=== PATIENT | female | born 1950 | race Caucasian/White ===

== ENCOUNTER → 2016-12-10 | Outpatient (CLI) | payer MEDICARE ==
--- NOTE | 2016-12-11 09:50 | MM ---
Reason for exam: screening (asymptomatic). Last mammogram was performed 1 year ago. History: Patient is postmenopausal and is nulliparous. Family history of breast cancer in maternal cousin. Physical Findings: A clinical breast exam by your physician is recommended on an annual basis and results should be correlated with mammographic findings. MG Screening Mammo w CAD Bilateral CC and MLO view(s) were taken. Prior study comparison: December 07, 2015, bilateral MG screening mammo w CAD. November 10, 2014, bilateral MG screening mammo w CAD. There are scattered fibroglandular densities. No significant changes when compared with prior studies. ASSESSMENT: Benign, BI-RAD 2 RECOMMENDATION: Routine screening mammogram of both breasts in 1 year.
== END | disposition home or self-care (01) ==
LOC: RADMAMWWP 09:49
PROVIDERS: ATTEND General Practice
DX: Z12.31 Encounter for screening mammogram for malignant neoplasm of breast (principal)

== ENCOUNTER → 2017-12-22 | Outpatient (CLI) | payer MEDICARE ==
--- NOTE | 2017-12-23 11:37 | MM ---
Reason for exam: screening (asymptomatic). Last mammogram was performed 1 year ago. History: Patient is postmenopausal and is nulliparous. Family history of breast cancer in maternal cousin. Physical Findings: A clinical breast exam by your physician is recommended on an annual basis and results should be correlated with mammographic findings. MG Screening Mammo w CAD Bilateral CC and MLO view(s) were taken. Prior study comparison: December 10, 2016, bilateral MG screening mammo w CAD. December 07, 2015, bilateral MG screening mammo w CAD. There are scattered fibroglandular densities. No significant changes when compared with prior studies. ASSESSMENT: Benign, BI-RAD 2 RECOMMENDATION: Routine screening mammogram of both breasts in 1 year.
== END | disposition home or self-care (01) ==
LOC: RADMAMWWP 10:02
PROVIDERS: ATTEND General Practice
DX: Z12.31 Encounter for screening mammogram for malignant neoplasm of breast (principal)
CPT/HCPCS: 77067

== ENCOUNTER → 2018-12-25 | Outpatient (CLI) | payer MEDICARE ==
--- NOTE | 2018-12-28 09:12 | MM ---
Reason for exam: screening (asymptomatic). Last mammogram was performed 1 year ago. History: Patient is postmenopausal and is nulliparous. Family history of breast cancer in maternal cousin. Physical Findings: A clinical breast exam by your physician is recommended on an annual basis and results should be correlated with mammographic findings. MG Screening Mammo w CAD Bilateral CC and MLO view(s) were taken. Prior study comparison: December 22, 2017, bilateral MG screening mammo w CAD. December 10, 2016, bilateral MG screening mammo w CAD. The breast tissue is heterogeneously dense. This may lower the sensitivity of mammography. There are benign appearing round linear calcifications bilaterally. There is no discrete abnormality. ASSESSMENT: Benign, BI-RAD 2 RECOMMENDATION: Routine screening mammogram of both breasts in 1 year.
== END | disposition home or self-care (01) ==
LOC: RADMAMWWP 09:56
PROVIDERS: ATTEND General Practice
DX: Z12.31 Encounter for screening mammogram for malignant neoplasm of breast (principal)
CPT/HCPCS: 77067

== ENCOUNTER → 2020-01-06 | Outpatient (CLI) | payer MEDICARE ==
--- NOTE | 2020-01-06 10:45 | MM ---
Reason for exam: screening (asymptomatic). Last mammogram was performed 1 year ago. History: Patient is postmenopausal and is nulliparous. Family history of breast cancer in paternal cousin. Physical Findings: A clinical breast exam by your physician is recommended on an annual basis and results should be correlated with mammographic findings. MG Screening Mammo w CAD Bilateral CC, MLO, and XCCL view(s) were taken. Prior study comparison: December 25, 2018, bilateral MG screening mammo w CAD. December 22, 2017, bilateral MG screening mammo w CAD. The breast tissue is heterogeneously dense. This may lower the sensitivity of mammography. There are benign appearing round dystrophic calcifications bilaterally. There is no discrete abnormality. ASSESSMENT: Benign, BI-RAD 2 RECOMMENDATION: Routine screening mammogram of both breasts in 1 year.
== END | disposition home or self-care (01) ==
LOC: RADMAMWWP 09:56
PROVIDERS: ATTEND Family Medicine
DX: Z12.31 Encounter for screening mammogram for malignant neoplasm of breast (principal)
CPT/HCPCS: 77067

== ENCOUNTER 2020-02-02 14:05 | Emergency (ER) | payer MEDICARE ==
[2020-02-02 14:14] VITALS: TEMP 97.5
[2020-02-02] MEDS ORDERED: DIPH,PERTUS(ACELL)TETVAC-LF 0.5 ML VIAL IM ONE (14:30)
[2020-02-02 14:58] VITALS: RESP 18
--- NOTE | 2020-02-02 14:59 | CT ---
EXAMINATION TYPE: CT brain uyen rico DATE OF EXAM: 02/02/2020 COMPARISON: HISTORY: Fall/head injury CT DLP: 948.[address] of the brain was performed. The ventricles, basal cisterns and sulci overlying the cerebral convexities demonstrate mild enlargem ent. There is no evidence for intracranial hemorrhage or sulcal effacement. There is decreased attenuatio n about the periventricular white matter and deep white matter of both cerebral hemispheres, compatib le with chronic small vessel ischemia. Small focal areas of remote insult. No mass effects are seen. If symptoms persist consider MRI. Osseous calvarium is intact. Facial fractures noted. Please see CT of the facial bones. IMPRESSION: 1. Age related atrophic and chronic small vessel ischemic change without acute intracranial process seen at this time. CT Cervical Spine: Unenhanced CT of the cervical spine was performed with bone and soft tissue window settings submitted . Coronal and sagittal reconstruction is obtained. There is normal alignment and prevertebral soft tissues. No evidence for acute cervical fracture . Scattered degenerative disc disease and spondylosis. Biapical scarring. IMPRESSION: 1. No evidence for acute fracture or subluxation of the cervical spine.
--- NOTE | 2020-02-02 15:06 | CT ---
EXAMINATION TYPE: CT facial bones wo con DATE OF EXAM: 02/02/2020 COMPARISON: None HISTORY: Fall/head injury CT DLP: 948.[address] of the facial bones was performed in the axial and coronal planes. Bone and soft tissu e window settings are submitted. Fractures are noted to involve the anterior wall, medial wall, lateral brito of the maxillary sinus o n the left. There is also fracture at the floor of the orbit without blowout component. Fractures als o seen involving the posterior wall extending into the pterygoid process. The left maxillary sinus is filled with blood byproducts. Nondisplaced nasal bone fracture also suggested. Tissue swelling noted . The globes are intact. IMPRESSION: Facial fractures as discussed. 1. No evidence for depressed or displaced facial bone fracture.
[2020-02-02] MEDS ORDERED: LIDOCAINE 1% INJ 10MG/ML (20 ML MDV) SQ ONE (16:05)
[2020-02-02] MEDS ORDERED: AMOXIC-POT CLAV 875MG STARTER PACK 2 TAB BTL PO STA (16:57)
--- NOTE | 2020-02-02 16:57 | ED ---
Fall HPI - General Chief Complaint: Fall Stated Complaint: Jaw injury, patient fell Time Seen by Provider: 02/02/20 14:18 Source: patient Mode of arrival: wheelchair - History of Present Illness Initial Comments: 69-year-old female patient presents to the emergency department today for evaluation of facial injury. Patient was up approximately 4-5 feet on a ladder cleaning out the top of the refrigerator when the ladder collapsed and she fell hitting her face on the floor. She denies any loss of consciousness. She is having significant left-sided facial pain, jaw pain, and states that she believes she broke a tooth. Patient is also having bleeding from her nose. She denies any neck or back pain. Denies any extremity injury. She denies taking blood thinning medications. She has not taken anything for pain. Patient denies any headache, chest pain, shortness of breath, dizziness, weakness, abdominal pain, nausea, vomiting, or difficulties with bowel movements or urination. - Related Data Previous Rx's Medication Instructions Recorded Amoxic-Pot Clav 875-125Mg 1 tab PO Q12HR #20 tablet 02/02/20 [Augmentin 875-125] Allergies Allergy/AdvReac Type Severity Reaction Status Date / Time No Known Allergies Allergy Verified 02/02/20 16:56 Review of Systems ROS Statement: Those systems with pertinent positive or pertinent negative responses have been documented in the HPI. ROS Other: All systems not noted in ROS Statement are negative. Past Medical History Past Medical History: Hypertension History of Any Multi-Drug Resistant Organisms: None Reported Past Surgical History: No Surgical Hx Reported Past Psychological History: No Psychological Hx Reported Smoking Status: Former smoker Past Alcohol Use History: None Reported Past Drug Use History: None Reported General Exam Limitations: no limitations General appearance: alert, in no apparent distress, other (This is a well- developed, well-nourished elderly female patient in no acute distress. Vital signs upon presentation are temperature 97.5F, pulse 108, respirations 16, blood pressure 167/91, pulse ox 97% on room air.) Eye exam: Present: normal appearance, PERRL, EOMI, other (Extraocular movements are intact.). Absent: scleral icterus, conjunctival injection, nystagmus, periorbital swelling, periorbital tenderness ENT exam: Present: mucous membranes moist, other (Patient has left-sided facial swelling, dependent ecchymosis, there is a 2 cm laceration noted to the chin which is through and through. There is a broken tooth to the lower front. There is gingival bleeding noted. There is dried blood noted to the bilateral nares. No evidence for septal hematoma.). Absent: normal exam, normal oropharynx Neck exam: Present: normal inspection, full ROM, other (Nontender, no step-off, no deformity to firm midline palpation of the posterior cervical spine. Full range of motion without pain or limitation.). Absent: tenderness, meningismus, lymphadenopathy Respiratory exam: Present: normal lung sounds bilaterally. Absent: respiratory distress, wheezes, rales, rhonchi, stridor Cardiovascular Exam: Present: regular rate, normal rhythm, normal heart sounds. Absent: systolic murmur, diastolic murmur, rubs, gallop, clicks GI/Abdominal exam: Present: soft, normal bowel sounds. Absent: distended, tenderness, guarding, rebound, rigid Back exam: Present: normal inspection, other (Nontender, no step-off, no deformity to firm midline palpation of the thoracic and lumbar vertebrae. Full range of motion without pain or limitation.). Absent: vertebral tenderness Neurological exam: Present: alert, oriented X3, CN II-XII intact Psychiatric exam: Present: normal affect, normal mood Skin exam: Present: warm, dry, intact, normal color. Absent: rash Course Vital Signs 02/02/20 02/02/20 02/02/20 14:07 14:57 15:43 Temperature 97.5 F L Pulse Rate 108 H 90 90 Respiratory 16 18 18 Rate Blood Pressure 167/91 153/94 O2 Sat by Pulse 97 97 98 Oximetry 02/02/20 02/02/20 16:25 17:23 Temperature Pulse Rate 98 88 Respiratory 18 18 Rate Blood Pressure 143/97 O2 Sat by Pulse 97 98 Oximetry Procedures - Laceration Laceration #1 Consent Obtained: verbal consent Indication: laceration Site: face Size (cm): 2 Description: linear Depth: [id number] Anesthetic Used: lidocaine 1% Anesthesia Technique: local infiltration Amount (mls): 3 Pre-repair: irrigated extensively Type of Sutures: nylon Size of Sutures: 6-0 Number of Sutures: 4 Technique: simple, interrupted Patient Tolerated Procedure: well, no complications Medical Decision Making - Medical Decision Making 69-year-old female patient presents to the emergency department today for evaluation of facial injury after a fall from a ladder. Physical examination did reveal left-sided facial swelling and dependent ecchymosis. There is a laceration noted to the chin just below the lip. CT facial bones, brain, C- spine were obtained. Brain and C-spine were negative but the facial bones showed left maxillary sinus fracture, inferior orbital wall fracture and a pterygoid fracture. Patient also had broken teeth. I did discuss the case with Dr. Clinton who recommends antibiotics, soft diet, sleeping upright, and instruction to no blow her nose. He also recommends outpatient ophthalmology follow-up. She'll be discharged with Augmentin. She refuses pain medication pr escription. She is instructed to follow-up with dentistry as well for her teeth. Return parameters were discussed in detail. She verbalizes understanding and agrees with this plan. - Radiology Data Radiology results: report reviewed, image reviewed CT of the brain and C-spine without contrast was obtained. Report was reviewed in its entirety. Impression by Dr. Blanco shows age-related atrophic and chronic small vessel ischemic change without acute intracranial process seen at this time. No evidence for acute fracture or subluxation of the cervical spine. CT facial bones without contrast was obtained. Report was reviewed in its entirety. Impression by Dr. Blanco fractures involving the anterior wall, medial wall, and lateral brito of the maxillary sinus on the left. There is also fracture of the floor of the orbit without blowout component. Fractures also seen involving the posterior wall extending to the pterygoid process. The left maxilla sinuses filled with blood bright products. Nondisplaced nasal bone fracture is also suggested. Swelling noted. The globes are intact. Disposition Clinical Impression: Maxillary sinus fracture, Fracture of inferior orbital wall, Pterygoid plate fracture, Nasal bone fracture Disposition: HOME SELF-CARE Condition: Good Instructions (If sedation given, give patient instructions): Nasal Fracture (ED), Facial Fracture (ED), Facial Laceration (ED) Additional Instructions: Do not blow your nose. Sleep sitting up. Eat only soft foods. Return immediately for any vision changes. Follow-up with the ear, nose, throat specialist Dr. Clinton within the next week for further evaluation of your maxillary and orbital fractures. Follow-up with the industrial controls technician Dr. Tse for further evaluation as soon as possible for orbital fracture. Follow up with the oral surgeon for recheck as soon as possible for broken tooth. Complete antibiotic prescription and full. Return to the emergency department immediately for any new, worsening, or c oncerning symptoms. Prescriptions: Amoxic-Pot Clav 875-125Mg [Augmentin 875-125] 1 tab PO Q12HR #20 tablet Is patient prescribed a controlled substance at d/c from ED?: No Referrals: Pooja Cruz MD [Primary Care Provider] - 1-2 days Murphy Clinton DO [Doctor of Osteopathic Medicine] - 1-2 days Newton Miramontes DDS [STAFF PHYSICIAN] - 1-2 days Time of Disposition: 16:57
[2020-02-02 17:27] VITALS: BP 143/97; PULSE 88
== END 2020-02-02 17:23 | disposition home or self-care (01) ==
LOC: EC 14:05
DX: S02.40DA Maxillary fracture, left side, initial encounter for closed fracture (principal); S02.2XXA Fracture of nasal bones, initial encounter for closed fracture; S02.30XA Fracture of orbital floor, unspecified side, initial encounter for closed fracture; S02.19XA Other fracture of base of skull, initial encounter for closed fracture; S02.5XXA Fracture of tooth (traumatic), initial encounter for closed fracture; S01.81XA Laceration without foreign body of other part of head, initial encounter; Z23 Encounter for immunization; I10 Essential (primary) hypertension; Z87.891 Personal history of nicotine dependence; W11.XXXA Fall on and from ladder, initial encounter; Y93.E9 Activity, other interior property and clothing maintenance
CPT/HCPCS: 72125; 70486; 70450; 90715; 99283; 90471; 12011; J2001

== ENCOUNTER → 2021-02-05 | Outpatient (CLI) | payer MEDICARE ==
--- NOTE | 2021-02-06 09:01 | MM ---
Reason for exam: screening (asymptomatic). Last mammogram was performed 1 year and 1 month ago. History: Patient is postmenopausal and is nulliparous. Family history of breast cancer in paternal cousin. Physical Findings: A clinical breast exam by your physician is recommended on an annual basis and results should be correlated with mammographic findings. MG 3D Screening Mammo W/Cad Bilateral CC and MLO view(s) were taken. Prior study comparison: January 06, 2020, bilateral MG screening mammo w CAD. December 25, 2018, bilateral MG screening mammo w CAD. The breast tissue is heterogeneously dense. This may lower the sensitivity of mammography. There are benign appearing round, dystrophic, diffuse and grouped calcifications bilaterally. There is chronic nodularity in the right axilla. There is no new dominant lesion. Asymmetric breast tissue left breast, stable. ASSESSMENT: Benign, BI-RAD 2 RECOMMENDATION: Routine screening mammogram of both breasts in 1 year.
== END | disposition home or self-care (01) ==
LOC: RADMAMWWP 11:11
PROVIDERS: ATTEND General Practice
DX: Z12.31 Encounter for screening mammogram for malignant neoplasm of breast (principal); Z78.0 Asymptomatic menopausal state; Z80.3 Family history of malignant neoplasm of breast
CPT/HCPCS: 77063; 77067

== ENCOUNTER → 2022-02-07 | Outpatient (CLI) | payer MEDICARE ==
--- NOTE | 2022-02-08 12:39 | MM ---
Reason for exam: screening (asymptomatic). Last mammogram was performed 1 year ago. History: Patient is postmenopausal and is nulliparous. Family history of breast cancer in paternal cousin. Physical Findings: A clinical breast exam by your physician is recommended on an annual basis and results should be correlated with mammographic findings. MG 3D Screening Mammo W/Cad Bilateral CC and MLO view(s) were taken. Prior study comparison: February 05, 2021, bilateral MG 3d screening mammo w/cad. January 06, 2020, bilateral MG screening mammo w CAD. There are scattered fibroglandular densities. No significant changes when compared with prior studies. ASSESSMENT: Benign, BI-RAD 2 RECOMMENDATION: Routine screening mammogram of both breasts in 1 year.
== END | disposition home or self-care (01) ==
LOC: RADMAMWWP 10:47
PROVIDERS: ATTEND Family Medicine
DX: Z12.31 Encounter for screening mammogram for malignant neoplasm of breast (principal)
CPT/HCPCS: 77063; 77067

== ENCOUNTER → 2023-02-10 | Outpatient (CLI) | payer MEDICARE ==
--- NOTE | 2023-02-10 11:41 | BD ---
EXAMINATION TYPE: Axial Bone Density DATE OF EXAM: 02/10/2023 CLINICAL HISTORY: 72 years old Female. ICD-10 CODE: Z78.0 ASYMPTOMATIC MENOPAUSAL Comparison: Prior DEXA bone scan 2011. Height: 62 Weight: 150.1 FRAX RISK QUESTIONS: Alcohol (3 or more units per day): no Family History (Parent hip fracture): mother Glucocorticoids (More than 3mos): no History of Fracture in Adulthood: shoulder Secondary Osteoporosis: 1. Type 1 Diabetes: no 2. Hyperthyroidism: no 3. Menopause before 45: no 4. Malnutrition: no 5. Chronic liver disease: no Rheumatoid Arthritis: no Current Tobacco Use: no RISK FACTORS HISTORY OF: Hip Fracture (Right/Left): no Spine Fracture: no History of Wrist Fracture: no Surgery to Spine/Hip(right/left)/Wrist (right/left): no Family History of Osteoporosis: mother, maternal aunt Active: yes Diet low in dairy products/other sources of calcium: yes Postmenopausal woman: yes Take estrogen and/or progesterone medications: no Lost more than 2 inches in height since high school: yes Frequent falls: no Poor Health: no Hyperparathyroidism: no Adrenal Insufficiency: no MEDICATIONS: Prednisone or other steroids: no Thyroid Medications:no Osteoporosis Medications: no Additional Medications: Calcium, BP meds, Magnesium, Vit D, Additional History: EXAM MEASUREMENTS: Bone mineral densitometry was performed using the [facility]. Bone mineral density as measured about the Lumbar spine is: ----- L1-L4(G/cm2): 0.856 T Score Values are as follows: ----- L1: -1..7 ----- L2: -3.5 ----- L3: -2.2 ----- L4: -3.5 ----- L1-L4: -2.7 Z Score Values are as follows: ----- L1: -0.1 ----- L2: -1.8 ----- L3: -0.6 ----- L4: -1.9 ----- L1-L4: -1.1 Bone mineral density has: decreased 10.5 % since study of: 10/28/2011 Bone mineral density about the R hip (g/cm2): 0.746 Bone mineral density about the L hip (g/cm2): 0.696 T Score values are as follows: -----R Neck: -2.6 -----L Neck: -3.4 -----R Total: -2.1 -----L Total: -2.5 Z Score values are as follows: -----R Neck: -0.8 -----L Neck: -1.6 -----R Total: -0.5 -----L Total: -0.9 Bone mineral density has: decreased 10.1 % since study of: FRAX%s: The graph provided illustrates a 60.1% chance for a major osteoporotic fx and a 46.1% chance for the hips probability for fx in 10 years time. IMPRESSION: Osteoporosis (T Score less than -2.5) is now present. There is increased fracture risk and therapy is usually indicated based on age. Re-Screen 1-2 years. NOTE: T-SCORE=SD OF THE YOUNG ADULT MEAN.
--- NOTE | 2023-02-11 08:02 | MM ---
Reason for Exam: Screening (asymptomatic). Last screening mammogram was performed 12 month(s) ago. Patient History: Menarche at age 12. Patient has no children. Postmenopausal. Risk Values: Esmer 5 year model risk: 1.8%. NCI Lifetime model risk: 4.1%. Prior Study Comparison: 01/06/2020 Bilateral Screening Mammogram, [facility]. 02/05/2021 Bilateral Screening Mammogram, [facility]. 02/07/2022 Bilateral Screening Mammogram, [facility]. Tissue Density: The breast tissue is heterogeneously dense. This may lower the sensitivity of mammography. Findings: Analyzed By CAD. There is no suspicious group of microcalcifications or new suspicious mass in either breast. Overall Assessment: Benign, BI-RAD 2 Management: Screening Mammogram of both breasts in 1 year. A clinical breast exam by your physician is recommended on an annual basis and results should be correlated with mammographic findings. Electronically signed and approved by: Adrian Blanco M.D. Radiologis
== END | disposition home or self-care (01) ==
LOC: RADMAMWWP 09:46
PROVIDERS: ATTEND Family Medicine
DX: Z12.31 Encounter for screening mammogram for malignant neoplasm of breast (principal); M81.0 Age-related osteoporosis without current pathological fracture; M85.89 Other specified disorders of bone density and structure, multiple sites; Z78.0 Asymptomatic menopausal state
CPT/HCPCS: 77063; 77067; 77080

== ENCOUNTER 2024-12-17 11:49 | Inpatient (IN) | payer MEDICARE ==
--- NOTE | 2024-12-17 12:28 | ED ---
General Adult HPI - General Chief complaint: Arrhythmia/Palpitations Stated complaint: left arm numbness Time Seen by Provider: 12/17/24 12:00 Source: patient, RN notes reviewed, old records reviewed Mode of arrival: ambulatory Limitations: no limitations - History of Present Illness Initial comments: 74-year-old female presenting with left arm numbness and weakness. Patient was seen by physical therapy today and was noted to have a change in the strength of her left arm. She states that this began feeling different yesterday evening at 8 PM when she woke from a nap. She presents at noon the following day with persistent weakness and numbness in the left arm. Denies any speech abnormalities. Denies any lower extremity symptoms. No prior history of CVA. - Related Data Home Medications Medication Instructions Recorded Confirmed Ascorbic Acid [Vitamin C] 1,000 mg PO DAILY 12/17/24 12/17/24 Calcium Carbonate [Calcium] 1,200 mg PO DAILY 12/17/24 12/17/24 Cholecalciferol [Vitamin D3 (25 25 mcg PO DAILY 12/17/24 12/17/24 Mcg = 1000 Iu)] Cider Vinegar [Apple Cider Vinegar] 300 mg PO BID 12/17/24 12/17/24 Cranberry Fruit Extract [Cranberry] 1,000 mg PO DAILY 12/17/24 12/17/24 Doterra Deep Blue Polyphenol 1 cap PO DAILY 12/17/24 12/17/24 Complex Fexofenadine HCl [Katlyn Allergy] 180 mg PO DAILY 12/17/24 12/17/24 Krill/[place]-3/Dha/Epa/Lipids 1 cap PO DAILY 12/17/24 12/17/24 [Krill Oil 350 mg Softgel] Losartan/Hydrochlorothiazide 1 tab PO DAILY 12/17/24 12/17/24 [Losartan-Hctz 100-12.5 mg Tab] Lysine 500 mg PO DAILY 12/17/24 12/17/24 Magnesium 250 mg PO DAILY 12/17/24 12/17/24 Turmeric Root Extract [Turmeric] 500 mg PO DAILY 12/17/24 12/17/24 Vit C/E/Zn/Coppr/Lutein/Zeaxan 1 cap PO BID 12/17/24 12/17/24 [Preservision Areds 2 Softgel] Vitamin B Complex 1 cap PO DAILY 12/17/24 12/17/24 Vitamin K2 [Vitamin K-2] 100 mcg PO DAILY 12/17/24 12/17/24 Allergies Allergy/AdvReac Type Severity Reaction Status Date / Time No Known Allergies Allergy Verified 12/17/24 13:14 Review of Systems ROS Statement: Those systems with pertinent positive or pertinent negative responses have been documented in the HPI. ROS Other: All systems not noted in ROS Statement are negative. Past Medical History Past Medical History: Hypertension History of Any Multi-Drug Resistant Organisms: None Reported Past Surgical History: No Surgical Hx Reported Past Psychological History: No Psychological Hx Reported Smoking Status: Never smoker Past Alcohol Use History: None Reported Past Drug Use History: None Reported General Exam Limitations: no limitations General appearance: alert, in no apparent distress Head exam: Present: atraumatic, normocephalic Eye exam: Present: normal appearance, PERRL ENT exam: Present: normal exam Neck exam: Present: normal inspection. Absent: tenderness, meningismus Respiratory exam: Present: normal lung sounds bilaterally. Absent: respiratory distress, wheezes Cardiovascular Exam: Present: regular rate, normal rhythm GI/Abdominal exam: Present: soft. Absent: distended, tenderness Extremities exam: Present: normal inspection, normal capillary refill Neurological exam: Present: alert, oriented X3, CN II-XII intact, motor sensory deficit (Left upper extremity ataxia and drift, NIH of 2) Psychiatric exam: Present: normal affect, normal mood Skin exam: Present: warm, dry, intact. Absent: cyanosis, diaphoretic Course Vital Signs 12/17/24 12/17/24 11:50 13:37 Temperature 97.5 F L Pulse Rate 128 H 120 H Respiratory 18 20 Rate Blood Pressure 165/99 179/101 O2 Sat by Pulse 95 96 Oximetry - Reevaluation(s) Reevaluation #1: 12/17/24 12:[address] Gonzalez covering for stroke intervention Medical Decision Making - Medical Decision Making Was pt. sent in by a medical professional or institution (, PA, DRY HOUSE ATTENDANT, urgent care, hospital, or custodial...) When possible be specific @ -No Did you speak to anyone other than the patient for history (EMS, parent, family, police, friend...)? What history was obtained from this source @ -No Did you review nursing and triage notes (agree or disagree)? Why? @ -I reviewed and agree with nursing and triage notes Were old charts reviewed (outside hosp., previous admission, EMS record, old EKG, old radiological studies, urgent care reports/EKG's, custodial records)? Report findings @ -No old charts were reviewed Differential CVA Ischemic stroke, hemorrhagic stroke, brain tumor, atypical migraine, Wernicke's encephalopathy, seizure, multiple sclerosis, meningitis, encephalitis, hypoglycemia, Guillain-Mensah, electrolytes disturbance, myasthenia gravis.... Th is is not meant to be an all-inclusive list EKG interpreted by me (3pts min.). @Sinus tachycardia with first-degree AV block rate of 123, IA interval 231, QRS duration 89, QTc [address] segment elevation EKG at 1335 showing narrow complex rhythm rate of 115 artifact limiting assessment but suspect sinus rhythm. IA interval 231, QRS duration 95, QTc 394 X-rays interpreted by me (1pt min.). @ -X-ray is negative for acute cardiopulmonary findings. CT interpreted by me (1pt min.). @ -CT brain negative for intracranial hemorrhage or mass effect, CT angiography negative for acute occlusion or stenosis U/S interpreted by me (1pt. min.). @ -None done What testing was considered but not performed or refused? (CT, X-rays, U/S, labs)? Why? @ -None What meds were considered but not given or refused? Why? @ -None Did you discuss the management of the patient with other professionals (professionals i.e. , PA, DRY HOUSE ATTENDANT, lab, RT, psych nurse, medical social consultant, felled seam operator, teacher, property portfolio officer, ed case manager)? Give summary @ -No Was smoking cessation discussed for >3mins.? @ -No Was critical care preformed (if so, how long)? @ -yes, 35 min Were there social determinants of health that impacted care today? How? (Homelessness, low income, unemployed, alcoholism, drug addiction, transportation, low edu. Level, literacy, decrease access to med. care, skilled nursing, rehab)? @ -No Was there de-escalation of care discussed even if they declined (Discuss DNR or withdrawal of care, Hospice)? DNR status @ -No What co-morbidities impacted this encounter? (DM, HTN, Smoking, COPD, CAD, Cancer, CVA, ARF, Chemo, Hep., AIDS, mental health diagnosis, sleep apnea, morbid obesity)? @Hypertension Was patient admitted / discharged? Hospital course, mention meds given and route, prescriptions, significant lab abnormalities, going to OR and other pertinent info. @74-year-old female presenting with left arm weakness and numbness, initial NIH of 2 for ataxia and weakness in the left arm. Patient is not a candidate for thrombolytics due to the onset being at least 16 hours prior to arrival. Patient is a stroke activation and I did discuss case with Dr. Rubio. CT CT brain with contrast is ordered, these are negative. Laboratory testing unremarkable. Patient remains somewhat tachycardic at a rate of 115 in the emergency department. She is given aspirin and Lipitor. She will be admitted for further stroke evaluation. Case discussed with Dr. Norman who will admit. Undiagnosed new problem with uncertain prognosis? @ -No Drug Therapy requiring intensive monitoring for toxicity (Heparin, Nitro, Insu jose, Cardizem)? @ -No Were any procedures done? @ -No Diagnosis/symptom? @ -CVA Acute, or Chronic, or Acute on Chronic? @ -acute Uncomplicated (without systemic symptoms) or Complicated (systemic symptoms)? @ complicated Side effects of treatment? @ -No Exacerbation, Progression, or Severe Exacerbation? @ -No Poses a threat to life or bodily function? How? (Chest pain, USA, HI, pneumonia, PE, COPD, DKA, ARF, appy, cholecystitis, CVA, Diverticulitis, Homicidal, Suicidal, threat to staff... and all critical care pts) @ -[yes, CVA - Lab Data Result diagrams: 12/17/24 12:17 12/17/24 12:17 Lab Results 12/17/24 12/17/24 12/17/24 Range/Units 12:17 12:17 12:17 WBC 6.2 (3.8-10.6) k/uL RBC 4.89 (3.80-5.40) m/uL Hgb 14.7 (11.4-16.0) gm/dL Hct 46.2 H (34.0-46.0) % MCV 94.4 (80.0-100.0) fL MCH 30.1 (25.0-35.0) pg MCHC 31.9 (31.0-37.0) g/dL RDW 12.5 (11.5-15.5) % Plt Count 243 (150-450) k/uL MPV 7.1 Neutrophils % 80 % Lymphocytes % 12 % Monocytes % 5 % Eosinophils % 2 % Basophils % 0 % Neutrophils # 5.0 (1.3-7.7) k/uL Lymphocytes # 0.8 L (1.0-4.8) k/uL Monocytes # 0.3 (0-1.0) k/uL Eosinophils # 0.1 (0-0.7) k/uL Basophils # 0.0 (0-0.2) k/uL PT 10.8 (10.0-12.5) sec INR 1.0 (<1.2) APTT 26.1 (22.0-30.0) sec Sodium 131 L (137-145) mmol/L Potassium 4.0 (3.5-5.1) mmol/L Chloride 93 L (98-107) mmol/L Carbon Dioxide 27 (22-30) mmol/L Anion Gap 11 mmol/L BUN 16 (7-17) mg/dL Creatinine 0.60 (0.52-1.04) mg/dL Est GFR (CKD-EPI)AfAm >90 (>60 ml/min/1.73 sqM) Est GFR (CKD-EPI)NonAf 89 (>60 ml/min/1.73 sqM) Glucose 165 H (74-99) mg/dL Calcium 9.6 (8.4-10.2) mg/dL Magnesium 1.8 (1.6-2.3) mg/dL Total Bilirubin 0.6 (0.2-1.3) mg/dL AST 26 (14-36) U/L ALT 20 (4-34) U/L Alkaline Phosphatase 81 (38-126) U/L Troponin I (0.000-0.034) ng/mL Total Protein 7.2 (6.3-8.2) g/dL Albumin 4.4 (3.5-5.0) g/dL TSH 2.220 (0.465-4.680) mIU/L 12/17/24 Range/Units 12:17 WBC (3.8-10.6) k/uL RBC (3.80-5.40) m/uL Hgb (11.4-16.0) gm/dL Hct (34.0-46.0) % MCV (80.0-100.0) fL MCH (25.0-35.0) pg MCHC (31.0-37.0) g/dL RDW (11.5-15.5) % Plt Count (150-450) k/uL MPV Neutrophils % % Lymphocytes % % Monocytes % % Eosinophils % % Basophils % % Neutrophils # (1.3-7.7) k/uL Lymphocytes # (1.0-4.8) k/uL Monocytes # (0-1.0) k/uL Eosinophils # (0-0.7) k/uL Basophils # (0-0.2) k/uL PT (10.0-12.5) sec INR (<1.2) APTT (22.0-30.0) sec Sodium (137-145) mmol/L Potassium (3.5-5.1) mmol/L Chloride (98-107) mmol/L Carbon Dioxide (22-30) mmol/L Anion Gap mmol/L BUN (7-17) mg/dL Creatinine (0.52-1.04) mg/dL Est GFR (CKD-EPI)AfAm (>60 ml/min/1.73 sqM) Est GFR (CKD-EPI)NonAf (>60 ml/min/1.73 sqM) Glucose (74-99) mg/dL Calcium (8.4-10.2) mg/dL Magnesium (1.6-2.3) mg/dL Total Bilirubin (0.2-1.3) mg/dL AST (14-36) U/L ALT (4-34) U/L Alkaline Phosphatase (38-126) U/L Troponin I <0.012 (0.000-0.034) ng/mL Total Protein (6.3-8.2) g/dL Albumin (3.5-5.0) g/dL TSH (0.465-4.680) mIU/L Critical Care Time Critical Care Time: Yes Total Critical Care Time: 35 Disposition Clinical Impression: CVA (cerebral vascular accident) Disposition: ADMITTED IP TO THIS [facility] Condition: Stable Is patient prescribed a controlled substance at d/c from ED?: No Referrals: Pooja Cruz MD [Primary Care Provider] - 1-2 days Time of Disposition: 14:04
[2024-12-17 12:31] LABS: Basophils % (A) 0 %; Eosinophils # (A) 0.1 k/uL (0-0.7); Eosinophils % (A) 2 %; HCT 46.2 % (34.0-46.0); HGB 14.7 gm/dL (11.4-16.0); Lymphocytes # (A) 0.8 k/uL (1.0-4.8); Lymphocytes % (A) 12 %; MCH 30.1 pg (25.0-35.0); MCHC 31.9 g/dL (31.0-37.0); MCV 94.4 fL (80.0-100.0); Mean Platelet Volume 7.1; Monocytes # (A) 0.3 k/uL (0-1.0); Monocytes % (A) 5 %; Neutrophils % (A) 80 %; Platelet Count 243 k/uL (150-450); RBC 4.89 m/uL (3.80-5.40); RDW 12.5 % (11.5-15.5); WBC 6.2 k/uL (3.8-10.6)
[2024-12-17 12:45] LABS: ALT 20 U/L (4-34); AST 26 U/L (14-36); African American GFR (CKD) >90 (>60 ml/min/1.73 sqM); Albumin 4.4 g/dL (3.5-5.0); Alkaline Phosphatase 81 U/L (38-126); Anion Gap 11 mmol/L; Blood Urea Nitrogen 16 mg/dL (7-17); Calcium 9.6 mg/dL (8.4-10.2); Carbon Dioxide 27 mmol/L (22-30); Chloride 93 mmol/L (98-107); Glucose 165 mg/dL (74-99); Magnesium 1.8 mg/dL (1.6-2.3); Non-African American GFR(CKD) 89 (>60 ml/min/1.73 sqM); Partial Thromboplastin Time 26.1 sec (22.0-30.0); Prothrombin Time 10.8 sec (10.0-12.5); Sodium 131 mmol/L (137-145); Total Bilirubin 0.6 mg/dL (0.2-1.3); Total Protein 7.2 g/dL (6.3-8.2)
[2024-12-17] MEDS: SODIUM CHLORIDE 0.9% 1,000 ML IV ONE (12:45)
--- NOTE | 2024-12-17 12:52 | CT ---
EXAMINATION TYPE: CT brain wo con DATE OF EXAM: 12/17/2024 12:37 PM COMPARISON: 02/02/2020 CLINICAL INDICATION: Female, 74 years old with history of left arm weakness, CODE STROKE TECHNIQUE: CT of the brain is performed utilizing 3 mm thick sections through the posterior fossa and 3 mm thick sections through the remaining calvarium. Study is performed within 24 hours of arrival to the hospital. Contrast used: mL of , (none if empty) CT DLP: 1185.8 mGycm, Automated exposure control for dose reduction was used. FINDINGS: No abnormal hyperdensity is present to suggest an acute intracranial hemorrhage. No mass lesion is evident. No acute infarcts are evident. Flow and periventricular white matter hypodensity is present, likely o n the basis of chronic white matter ischemic changes. Findings are similar to progressive from 020 comparison Ventricles and sulci are appropriate for the patient age. Paranasal sinuses and mastoid air cells within the [id number] are clear. IMPRESSION: 1. No acute intracranial process. Follow up MRI can be performed as clinically indicated. 2. Chronic appearing periventricular white matter ischemic-type changes. [facility], , 12/17/2024 12:50 PM
--- NOTE | 2024-12-17 13:00 | XR ---
EXAMINATION TYPE: XR chest 2V DATE OF EXAM: 12/17/2024 12:42 PM COMPARISON: None. CLINICAL INDICATION: Female, 74 years old with history of dysrhythmia, TECHNIQUE: Frontal and lateral views of the chest are obtained. FINDINGS: Underlying emphysematous changes are likely present. There is no focal air space opacity, pleural effusion, or pneumothorax seen. The cardiac silhouette size is upper limits of normal with a therosclerotic thoracic aorta. The osseous structures are intact. IMPRESSION: No acute process. [facility], , 12/17/2024 12:58 PM
[2024-12-17] MEDS: ASPIRIN 325 MG TAB PO STA (13:08)
--- NOTE | 2024-12-17 13:17 | CT ---
EXAMINATION TYPE: CT angio head neck CT DLP: 374.5 mGycm, Automated exposure control for dose reduction was used. DATE OF EXAM: 12/17/2024 1:08 PM COMPARISON: CT brain 12/17/2024, CT brain C-spine 02/02/2020. CLINICAL INDICATION:Female, 74 years old with history of cva, left arm weakness; PHH, CODE STROKE TECHNIQUE: Axially acquired helical CT angiogram of the head and neck was obtained with contrast util izing 75 cc of Isovue-370 administered intravenously. Axial images are supplemented with 3D reconstru ctions which were post-processed at an independent workstation. NASCET criteria used. FINDINGS: CTA HEAD: No evidence of acute intracranial hemorrhage, mass effect, or midline shift. The ventricles, sulci, a nd cisterns are unremarkable. The visualized portions of the internal carotid arteries, middle cerebral arteries, anterior cerebral arteries, and posterior cerebral arteries are patent. The basilar and vertebral arteries are patent. CTA NECK: Right Carotid System: The common carotid artery and external carotid artery are patent. Minimal calcified plaque at the car otid bifurcation. The carotid bifurcation demonstrates no evidence of hemodynamically significant carrie nosis. The remaining portions of the internal carotid artery demonstrate normal size without signific ant narrowing. Left Carotid System: The common carotid artery and external carotid artery are patent. Minimal calcified plaque at the car otid bifurcation. The carotid bifurcation demonstrates no evidence of hemodynamically significant carrie nosis. The remaining portions of the internal carotid artery demonstrate normal size without signific ant narrowing. Vertebral arteries are patent without evidence hemodynamically significant stenosis. There is a three-vessel aortic arch. The origins of the great vessels are patent. No evidence of hemo dynamically significant stenosis. Right thyroid lobe 1.1 cm hypodense nodule. Mild mucosal thickening in the inferior right maxillary s inus. Multilevel degenerative disc disease of the cervical spine. Biapical pleural parenchymal scarri ng. IMPRESSION: 1. No evidence of dissection of the cervical internal carotid arteries or vertebral arteries or any e vidence of significant stenosis at the carotid bifurcations. 2. No evidence of high-grade stenosis or intracranial aneurysm. [facility], , 12/17/2024 1:15 PM
[2024-12-17] MEDS: ATORVASTATIN 40 MG TAB PO SCH (14:07)
[2024-12-17] MEDS: SODIUM CHLORIDE 0.9% 1,000 ML IV SCH (14:09)
--- NOTE | 2024-12-17 17:11 | P.CNNES ---
History of Present Illness Consult date: 12/17/24 Requesting physician: Cecilio French Reason for Consult: cva History of Present Illness: This is a 74 year-old woman who presents to the emergency department for left upper extremity weakness. She stated her symptoms started last night she noticed that she had left upper extremity weakness. Seems that she waved it off and she went to physical therapy early in the morning today and they noticed that she had left upper extremity weakness and they requested that she comes to the hospital for further evaluation. She notified emergency department that she had left arm weakness and numbness but she denies any numbness to me. She denies any visual disturbance, difficulty swallowing. Denies any weakness anywhere else. She denies any history of stroke in the past. She denies being on any antiplatelet. Denies any history of A-fib. Denies any tobacco use alcohol use or any illicit drug use. She states that she is healthy. She does have underlying history of hypertension and she states it is controlled with medication. Denies any history of heart attack in the past. Denies any diabetes mellitus. Denies any history of multiple sclerosis. The patient feels her symptoms is drastically improving. Some of the workup during this hospital visit consisted of: Systolic blood pressure in the 160s to 170s. Diastolic blood pressure 90s to 100s Heart rate in the 120s. TSH is 2.22 I reviewed the rest of the lab workup. CT of the head reported as no acute intracranial process. Chronic appearing periventricular white matter ischemic type changes. I personally reviewed the CT head and I agree there is no acute or subacute stroke. Patient does have chronic small vessel ischemic changes as well as has old lesion over the bilateral hemisphere. CT Angiography of the head and neck is reported as no evidence of dissection of cervical internal carotid artery or vertebral artery or any evidence of sig nificant stenosis at the carotid bifurcation. No evidence of high-grade stenosis or intracranial aneurysm. Review of Systems As per HPI. Past Medical History Past Medical History: Hypertension History of Any Multi-Drug Resistant Organisms: None Reported Past Surgical History: No Surgical Hx Reported Past Psychological History: No Psychological Hx Reported Smoking Status: Never smoker Past Alcohol Use History: None Reported Past Drug Use History: None Reported Medications and Allergies Home Medications Medication Instructions Recorded Confirmed Type Ascorbic Acid [Vitamin C] 1,000 mg PO DAILY 12/17/24 12/17/24 History Calcium Carbonate [Calcium] 1,200 mg PO DAILY 12/17/24 12/17/24 History Cholecalciferol [Vitamin D3 (25 25 mcg PO DAILY 12/17/24 12/17/24 History Mcg = 1000 Iu)] Cider Vinegar [Apple Cider Vinegar] 300 mg PO BID 12/17/24 12/17/24 History Cranberry Fruit Extract [Cranberry] 1,000 mg PO DAILY 12/17/24 12/17/24 History Doterra Deep Blue Polyphenol 1 cap PO DAILY 12/17/24 12/17/24 History Complex Fexofenadine HCl [Katlyn Allergy] 180 mg PO DAILY 12/17/24 12/17/24 History Krill/Adin-3/Dha/Epa/Lipids 1 cap PO DAILY 12/17/24 12/17/24 History [Krill Oil 350 mg Softgel] Losartan/Hydrochlorothiazide 1 tab PO DAILY 12/17/24 12/17/24 History [Losartan-Hctz 100-12.5 mg Tab] Lysine 500 mg PO DAILY 12/17/24 12/17/24 History Magnesium 250 mg PO DAILY 12/17/24 12/17/24 History Turmeric Root Extract [Turmeric] 500 mg PO DAILY 12/17/24 12/17/24 History Vit C/E/Zn/Coppr/Lutein/Zeaxan 1 cap PO BID 12/17/24 12/17/24 History [Preservision Areds 2 Softgel] Vitamin B Complex 1 cap PO DAILY 12/17/24 12/17/24 History Vitamin K2 [Vitamin K-2] 100 mcg PO DAILY 12/17/24 12/17/24 History Allergies Allergy/AdvReac Type Severity Reaction Status Date / Time No Known Allergies Allergy Verified 12/17/24 13:14 Physical Examination - Vital Signs Vital Signs: Vital Signs Temp Pulse Resp BP Pulse Ox 12/17/24 15:20 98.3 F 107 H 16 165/101 93 L 12/17/24 13:37 120 H 20 179/101 96 12/17/24 11:50 97.5 F L 128 H 18 165/99 95 Intake and Output 12/17/24 12/17/24 12/17/24 06:59 14:59 22:59 Other: Weight 58.967 kg GENERAL: The patient is lying in bed and is not in acute distress. NEUROLOGICAL: Higher mental function: The patient is awake, alert, oriented to self, place and time. Patient is following commands. No aphasia and no neglect. Cranial nerves: The pupils are round, equal and reactive to light and accommodation. Visual sprague are full to confrontation throughout. Extraocular movement is intact no nystagmus is noted. Facial sensation is normal to touch throughout. The facial strength is normal throughout. Hearing is normal bilaterally to hand rub. Tongue is midline and moved [id number] without any difficulty. No dysarthria is noted. Shoulder shrug is normal bilaterally. Motor: The strength is left upper extremity is 4+. Otherwise 5 over 5 throughout. Normal tone and bulk. Cerebellum: Has ataxia finger to nose on the left. Otherwise Normal finger to no se right. Normal heel to oquendo bilaterally. Sensation: Sensation is normal to touch throughout. Reflexes (right/left): 2+ Results - Laboratory Findings CBC and BMP: 12/17/24 12:17 12/17/24 12:17 Abnormal Lab Findings: Abnormal Labs 12/17/24 12/17/24 12:17 12:17 Hct 46.2 H Lymphocytes # 0.8 L Sodium 131 L Chloride 93 L Glucose 165 H Assessment and Plan Assessment: This is a 74-year-old woman who last night noticed left upper extremity weakness and reported to the ED that she had numbness. When she went to the physical therapist today she was asked to come to the hospital for evaluation of her symptoms. Likely acute ischemic stroke. On examination patient had left upper extremity weakness and was ataxic with [id number] as well as she reported to the ED team that she had numbness. No IV thrombolytic since outside the window and the risk outweighed the benefit. Escalated hypertension Underlying history of hypertension and is on medication and states it is controlled Plan: Patient was given aspirin 325 once in the ED then was started on aspirin 325 mg daily. Prior to this the patient was not on any antiplatelet. Patient refused to be on dual antiplatelet. She was started on Lipitor 40 mg daily the ED team but states that she wants to be on the lower dose so I lowered it to 20 mg daily next line I ordered MRI of the brain Lipid panel, 2D echo was ordered by the ED team is pending Continue neurochecks Cardiac monitoring PT OT and PAINTING AND COATING WORKER are consulted Recommend permissive hypertension for 24 hours. Defer the rest of the medical management to primary team For DVT prophylaxis I started the patient on subcu heparin 5000 units every 12 hours Thank you for the consultation Dr. Mcgowan will resume neurology service tomorrow AM Time with Patient: Greater than 30
[2024-12-17] MEDS: HEPARIN SODIUM,PORCINE 5,000 UNIT/ML 1 ML VIAL SQ SCH (21:48)
[2024-12-17] MEDS: LORATADINE 10 MG TAB PO SCH (23:11)
[2024-12-18] MEDS: ATORVASTATIN 20 MG TAB PO SCH (09:01)
[2024-12-18] MEDS: ASPIRIN 325 MG TAB PO SCH (09:01)
[2024-12-18] MEDS ORDERED: NON FORMULARY DRUG (Fexofenadine Hcl [Allegra Allergy] 180 MG Tablet) PO SCH (09:30)
--- NOTE | 2024-12-18 10:45 | P.HPIM ---
History of Present Illness H&P Date: 12/18/24 Desiree Martinez, is a 74 year-old female who presented to [facility] ER with a chief complaint of left arm weakness that started in the morning when she woke up on Friday. She was evaluated in the emergency room vital examination on presentation revealed a temperature of 97.5 pulse 128 respiration 18 blood pressure 165/99 pulse ox 95% on room air Laboratory data revealed a white blood count of 6.2 hemoglobin 14.7 platelet count 243 sodium 131 potassium 4.0 chloride 93 BUN 16 creatinine 0.6 glucose 165 troponin level 0.012 TSH 2.22 Testing in the emergency room revealed CT scan of the brain without contrast done in the emergency room revealed no acute intracranial process, chronic appearing periventricular white matter ischemic type changes, CT angiogram of the brain and neck revealed no evidence of high-grade stenosis or intracranial aneurysm, no evidence of dissection of the cervical internal carotid arteries or vertebral arteries or any evidence of significant stenosis of the carotid bifurcations. Chest x-ray done in the emergency room revealed no acute process, EKG done in the emergency room revealed sinus tachycardia with first-degree AV block Patient was admitted to medical floor for further evaluation and treatment, neurology consultation was requested Past Medical History Past Medical History: Hypertension History of Any Multi-Drug Resistant Organisms: None Reported Past Surgical History: No Surgical Hx Reported Past Anesthesia/Blood Transfusion Reactions: No Reported Reaction Past Psychological History: No Psychological Hx Reported Smoking Status: Former smoker Past Alcohol Use History: None Reported Past Drug Use History: None Reported Medications and Allergies Home Medications Medication Instructions Recorded Confirmed Type Ascorbic Acid [Vitamin C] 1,000 mg PO DAILY 12/17/24 12/17/24 History Calcium Carbonate [Calcium] 1,200 mg PO DAILY 12/17/24 12/17/24 History Cholecalciferol [Vitamin D3 (25 25 mcg PO DAILY 12/17/24 12/17/24 History Mcg = 1000 Iu)] Cider Vinegar [Apple Cider Vinegar] 300 mg PO BID 12/17/24 12/17/24 History Cranberry Fruit Extract [Cranberry] 1,000 mg PO DAILY 12/17/24 12/17/24 History Doterra Deep Blue Polyphenol 1 cap PO DAILY 12/17/24 12/17/24 History Complex Fexofenadine HCl [Katlyn Allergy] 180 mg PO DAILY 12/17/24 12/17/24 History Krill/[place]-3/Dha/Epa/Lipids 1 cap PO DAILY 12/17/24 12/17/24 History [Krill Oil 350 mg Softgel] Losartan/Hydrochlorothiazide 1 tab PO DAILY 12/17/24 12/17/24 History [Losartan-Hctz 100-12.5 mg Tab] Lysine 500 mg PO DAILY 12/17/24 12/17/24 History Magnesium 250 mg PO DAILY 12/17/24 12/17/24 History Turmeric Root Extract [Turmeric] 500 mg PO DAILY 12/17/24 12/17/24 History Vit C/E/Zn/Coppr/Lutein/Zeaxan 1 cap PO BID 12/17/24 12/17/24 History [Preservision Areds 2 Softgel] Vitamin B Complex 1 cap PO DAILY 12/17/24 12/17/24 History Vitamin K2 [Vitamin K-2] 100 mcg PO DAILY 12/17/24 12/17/24 History Allergies Allergy/AdvReac Type Severity Reaction Status Date / Time No Known Allergies Allergy Verified 12/17/24 13:14 Physical Exam Vitals: Vital Signs Temp Pulse Pulse Resp BP BP Pulse Ox 12/18/24 08:00 98.1 F 82 16 141/84 94 L 12/18/24 04:00 98.0 F 90 18 135/81 93 L 12/17/24 23:36 98.1 F 90 18 162/102 96 12/17/24 21:36 98.0 F 101 H 18 165/103 93 L 12/17/24 21:00 97.8 F 109 H 20 176/99 98 12/17/24 19:19 98.1 F 100 19 172/104 92 L 12/17/24 19:16 98.1 F 100 19 172/104 92 L 12/17/24 15:20 98.3 F 107 H 16 165/101 93 L 12/17/24 13:37 120 H 20 179/101 96 12/17/24 11:50 97.5 F L 128 H 18 165/99 95 Intake and Output 12/17/24 12/18/24 12/18/24 22:59 06:59 14:59 Intake Total 240 Balance 240 Intake: Oral 240 Other: # Voids 1 Weight 58.967 kg In general patient is alert and oriented x 3 in no distress HEENT head normocephalic and atraumatic Neck is supple no JVD no goiter no lymphadenopathy no carotid bruit Chest examination is clear to auscultation no crackles no wheezing Cardiac exam reveals regular heart sounds S1 and S2 no gallops no murmurs Abdomen is soft nontender no organomegaly with normal bowel sounds Extremity exam reveals no edema no cyanosis or clubbing Neurological examination reveals Mental status patient is alert and oriented x 3, speech is fluent Cranial nerves II to XII are intact Sensory exam is normal to touch Motor examination reveals significant weakness in the left upper extremity as compared to the right, otherwise normal motor abnormality Cerebellum there is significant ataxia on the left [id number] test, normal on the right Reflexes are 2+ symmetrical Results CBC & Chem 7: 12/17/24 12:17 12/17/24 12:17 Labs: Abnormal Lab Results - Last 24 Hours (Table) 12/17/24 12/17/24 Range/Units 12:17 12:17 Hct 46.2 H (34.0-46.0) % Lymphocytes # 0.8 L (1.0-4.8) k/uL Sodium 131 L (137-145) mmol/L Chloride 93 L (98-107) mmol/L Glucose 165 H (74-99) mg/dL Thrombosis Risk Factor Assmnt - Choose All That Apply Any of the Below Risk Factors Present?: No Each Risk Factor Represents 3 Points: Age 75 years or older Thrombosis Risk Factor Assessment Total Risk Factor Score: 3 Thrombosis Risk Factor Assessment Level: Moderate Risk Assessment and Plan Plan: Acute ischemic stroke Accelerated hypertension on presentation Tachycardia on presentation Underlying history of hypertension Underlying history of osteoporosis At this time patient was seen and examined Home medications reviewed and reordered Neurology consultation was requested Echocardiogram and MRI of the brain ordered Will follow closely
[2024-12-18] MEDS: LOSARTAN 50 MG TAB PO SCH (12:17)
[2024-12-18] MEDS: MAGNESIUM OXIDE 400 MG TAB PO SCH (12:17)
[2024-12-18] MEDS: hydroCHLOROthiazide 12.5 MG CAP PO SCH (12:17)
--- NOTE | 2024-12-18 12:34 | CA ---
Transthoracic Echo Report Name: Desiree Martinez Age: 74 Gender: F : 1950 Exam Date: 12/18/2024 09:15 Exam Location: [place] [facility] Ht (in): 65 Wt (lb): 130 Ordering Physician: Cecilio French MD Attending/Referring Phys: [id number], [employer] T[employer] Dixie Carrington RDCS Procedure CPT: Indications: Thrombus/CVA Cardiac Hx: Technical Quality: Good Contrast 1: Total Dose (mL): Contrast 2: Total Dose (mL): MEASUREMENTS (Male / Female) Normal Values 2D ECHO LV Diastolic Diameter PLAX 4.7 cm 4.2 - 5.9 / 3.9 - 5.3 cm LV Systolic Diameter PLAX 3.0 cm IVS Diastolic Thickness 1.1 cm 0.6 - 1.0 / 0.6 - 0.9 cm LVPW Diastolic Thickness 1.2 cm 0.6 - 1.0 / 0.6 - 0.9 cm LV Relative Wall Thickness 0.5 RV Internal Dim ED PLAX 3.5 cm LA Systolic Diameter LX 4.5 cm 3.0 - 4.0 / 2.7 - 3.8 cm LV Diastolic Volume MOD 4C 81.5 cm??? LV Systolic Volume MOD 4C 33.7 cm??? LV Ejection Fraction MOD 4C 58.7 % LV Cardiac Index MOD 4C 2152.0 cm???/min???m??? LV Diastolic Length 4C 7.5 cm LV Systolic Length 4C 6.3 cm LV Diastolic Volume MOD 2C 74.2 cm??? LV Systolic Volume MOD 2C 34.9 cm??? LV Ejection Fraction MOD 2C 52.9 % LV Cardiac Index MOD 2C 1765.2 cm???/min???m??? LV Diastolic Length 2C 7.4 cm LV Systolic Length 2C 6.2 cm LA Volume 52.3 cm??? 18 - 58 / 22 - 52 cm??? LA Volume Index 31.8 cm???/m??? 16 - 28 cm???/m??? M-MODE Aortic Root Diameter MM 3.3 cm AV Cusp Separation MM 1.9 cm DOPPLER AV Peak Velocity 149.3 cm/s AV Peak Gradient 8.9 mmHg MV Area PHT 2.3 cm??? Mitral E Point Velocity 57.8 cm/s Mitral A Point Velocity 116.5 cm/s Mitral E to A Ratio 0.5 MV Deceleration Time 323.5 ms TR Peak Velocity 237.4 cm/s TR Peak Gradient 22.5 mmHg Right Ventricular Systolic Press 26.7 mmHg FINDINGS Left Ventricle Left ventricular ejection fraction is estimated at 55 %. Left ventricular cavity size normal. Mildly increased septal wall thickness. Mildly increased posterior wall thickness. Right Ventricle Mild right ventricular dilatation. Right ventricular systolic pressure within normal limits. Right Atrium Normal right atrial size. No right atrial thrombus or mass seen. Left Atrium Moderately increased left atrial diameter. Mildly increased left atrial volume. Mildly increased left atrial area. No left atrial thrombus or mass present. Mitral Valve Structurally normal mitral valve. No evidence for mitral valve prolapse. No mitral stenosis. Trace to mild mitral regurgitation. Aortic Valve Trileaflet aortic valve. No aortic valve stenosis or regurgitation. Tricuspid Valve Structurally normal tricuspid valve. Mild tricuspid regurgitation. Pulmonic Valve Structurally normal pulmonic valve. No pulmonic regurgitation. Pericardium No pericardial or pleural effusion. Aorta Normal size aortic root and proximal ascending aorta. CONCLUSIONS Left ventricular ejection fraction 55% Mildly increased left ventricular wall thickness RVSP 27 Mild to moderately dilated left atrium Trace mild mitral regurgitation Mild tricuspid regurgitation Previewed by: Dr. Pee Cardenas DO (Electronically Signed) Final Date: 18 December 2024 12:33
--- NOTE | 2024-12-18 13:59 | MR ---
INDICATION: Patient age:Female; 74 years old; Reason for study: stroke. left arm weakness and numbness; PHH. COMPARISON: CT brain 12/17/2024, CTA head and neck 12/09/2024. TECHNIQUE: Multi planar, multi sequence imaging was performed through the brain without the administr ation of intravenous contrast. FINDINGS: The jones-white junctions, ventricular system, basal cisterns appear unremarkable. Age-appropriate cer ebral volume loss. Diffusion-weighted imaging shows restricted diffusion involving the jones-white maximo ctions of the right parietal lobe. There is corresponding FLAIR signal hyperintensity. Prior infarct within the left parieto-occipital region. Remote lacunar infarcts within the bilateral denney radiata anteriorly. Intracranial arterial flow voids are maintained. Midline structures show no abnormality. Confluent areas of high T2 signal intensity are seen within the periventricular and subcortical whit e matter. The susceptibility weighted images demonstrate scattered foci of blooming artifact consiste nt with prior hemosiderin deposition. The bone marrow signal is within normal limits. The paranasal sinuses are unremarkable. Bilateral a phakia. IMPRESSION: 1. Acute/subacute ischemia within the right parietal lobe. 2. Remote lacunar injuries with advanced nonspecific white matter changes, likely related to small ve ssel ischemic disease. A Red level critical message alert has been initiated for Leticia Norman MD via the eV[employer] System on 12/18/2024 1:57 PM. This message alert has been sent to Leticia Norman MD via the preferences provided by the clinician for the receipt of Radiology Critical Findings. Message ID [id number]. [facility], , 12/18/2024 1:57 PM
[2024-12-18] MEDS: CLOPIDOGREL 75 MG TAB PO SCH (14:45)
--- NOTE | 2024-12-18 16:27 | P.PN ---
Subjective Progress Note Date: 12/18/24 Patient is initially seen by Dr. Jorge Weir. Please refer to his note for details. Patient is a 74-year-old female with left upper extremity weakness, numbness since the night prior. Patient is undergoing stroke workup. Patient refused dual antiplatelet therapy. Patient was seen for a follow-up. Patient is laying comfortably in the bed. Offers no complaints. She feels her left side is getting better. Patient was not taking any antiplatelet medication at home. Some of the workup during this hospital visit consisted of: Systolic blood pressure in the 160s to 170s. Diastolic blood pressure 90s to 100s Heart rate in the 120s. TSH is 2.22 CT of the head reported as no acute intracranial process. Chronic appearing periventricular white matter ischemic type changes. I personally reviewed the CT head and I agree there is no acute or subacute stroke. Patient does have chronic small vessel ischemic changes as well as has old lesion over the bilateral hemisphere. CT Angiography of the head and neck is reported as no evidence of dissection of cervical internal carotid artery or vertebral artery or any evidence of significant stenosis at the carotid bifurcation. No evidence of high-grade stenosis or intracranial aneurysm. Objective - Vital Signs Vital signs: Vital Signs Temp 97.9 F 12/18/24 12:00 Pulse 79 12/18/24 14:00 Resp 16 12/18/24 14:00 BP 154/90 12/18/24 12:00 Pulse Ox 96 12/18/24 12:00 FiO2 Intake & Output 12/17/24 12/18/24 12/18/24 18:59 06:59 18:59 Intake Total 960 Balance 960 Weight 58.967 kg 58.967 kg Intake: Oral 960 Other: # Voids 1 - Exam Mental status, speech and language functions are normal. Cranial nerves are normal. Visual sprague are full, extraocular muscles are intact. Face is symmetric. On muscle strength testing, patient has left pronation, with very mild drift. The strength is normal in the arms and legs. Sensory to touch is equal in the arms with no neglect. Sensory to touch is equal in the legs, but she neglects left leg on double simultaneous stimulation. Patient has ataxia for owznhy-ox-yozj testing on the left, but not the right. She is mildly ataxic in both lower limbs. Gait deferred. - Labs CBC & Chem 7: 12/17/24 12:17 12/17/24 12:17 Assessment and Plan Assessment: This is a 74-year-old woman who last night noticed left upper extremity weakness and reported to the ED that she had numbness. When she went to the physical therapist today she was asked to come to the hospital for evaluation of her symptoms. Acute ischemic stroke in the right parietal lobe. No IV thrombolytic since outside the window and the risk outweighed the benefit. Escalated hypertension Underlying history of hypertension and is on medication and states it is controlled Plan: * Patient was not taking any antiplatelet medication at home. Now with stroke, she has agreed to be on dual antiplatelet therapy for 21 days. Patient will be placed on aspirin 81 mg and Plavix 75 mg for 21 days, thereafter she will stop Plavix and continue aspirin. * Patient was started on Lipitor 40 mg daily the ED team but states that she wants to be on the lower dose so Dr. Weir has lowered it to 20 mg daily * MRI of the brain revealed acute/subacute ischemia within the right parietal lobe. Remote lacunar injuries with advanced nonspecific white matter changes, likely related to small vessel ischemic disease. I personally reviewed MRI, agree with the findings. * 2D echo revealed LVEF 55%. Mildly increased septal wall thickness. Mildly i ncreased posterior wall thickness. Moderately increased left atrial diameter. No left atrial thrombus or mass. Trace to mild MR. * Continue neurochecks * Await fasting lipid panel * Check hemoglobin A1c * Recommend 30-day event monitoring outpatient to rule out paroxysmal atrial fibrillation. * PT OT and CIVIL ATTORNEY are consulted * Recommend permissive hypertension for 24 hours. * Defer the rest of the medical management to primary team * For DVT prophylaxis I started the patient on subcu heparin 5000 units every 12 hours * Discussed with patient's and patient's nurse as well.
[2024-12-18] MEDS: VIT A,C & E-LUTEIN-MINERALS 1 EACH TAB PO SCH (20:23)
[2024-12-18 23:17] VITALS: RESP 16
[2024-12-19 08:19] LABS: Chol/HDL Ratio 2.08 Ratio; VLDL Calculation 14.52 mg/dL (5.00-40.00)
[2024-12-19 08:20] LABS: LDL Cholesterol,Calculated 107.5 mg/dL (0.0-131.0)
[2024-12-19 08:35] LABS: ALT 24 U/L (4-34); AST 29 U/L (14-36); African American GFR (CKD) >90 (>60 ml/min/1.73 sqM); Albumin 4.1 g/dL (3.5-5.0); Alkaline Phosphatase 79 U/L (38-126); Anion Gap 5 mmol/L; Blood Urea Nitrogen 14 mg/dL (7-17); Calcium 9.2 mg/dL (8.4-10.2); Carbon Dioxide 32 mmol/L (22-30); Chloride 91 mmol/L (98-107); Glucose 101 mg/dL (74-99); Non-African American GFR(CKD) 86 (>60 ml/min/1.73 sqM); Potassium 3.9 mmol/L (3.5-5.1); Sodium 128 mmol/L (137-145); Total Bilirubin 0.7 mg/dL (0.2-1.3); Total Protein 6.7 g/dL (6.3-8.2)
[2024-12-19] MEDS ORDERED: NON FORMULARY DRUG (Vitamin B Complex [Vitamin B Complex] 1 EACH Capsule) PO SCH (09:00)
[2024-12-19] MEDS: CALCIUM CARBONATE 500 MG CHEWABLE PO SCH (09:00)
[2024-12-19] MEDS: ASCORBIC ACID 500 MG TAB PO SCH (09:01)
[2024-12-19] MEDS: CHOLECALCIFEROL 25 MCG (1000 IU) TABLET PO SCH (09:01)
[2024-12-19] MEDS: ASPIRIN 81 MG PO SCH (09:02)
[2024-12-19 09:04] LABS: Basophils % (A) 0 %; Eosinophils # (A) 0.2 k/uL (0-0.7); Eosinophils % (A) 4 %; HCT 45.4 % (34.0-46.0); HGB 14.9 gm/dL (11.4-16.0); Lymphocytes # (A) 1.6 k/uL (1.0-4.8); Lymphocytes % (A) 36 %; MCH 30.9 pg (25.0-35.0); MCHC 32.8 g/dL (31.0-37.0); MCV 94.4 fL (80.0-100.0); Mean Platelet Volume 6.7; Monocytes # (A) 0.3 k/uL (0-1.0); Monocytes % (A) 7 %; Neutrophils # (A) 2.4 k/uL (1.3-7.7); Neutrophils % (A) 52 %; Platelet Count 238 k/uL (150-450); RBC 4.81 m/uL (3.80-5.40); RDW 12.5 % (11.5-15.5); WBC 4.6 k/uL (3.8-10.6)
--- NOTE | 2024-12-19 09:31 | P.PN ---
Subjective Progress Note Date: 12/19/24 Desiree Martinez, is a 74 year-old female who presented to [facility] ER with a chief complaint of left arm weakness that started in the morning when she woke up on Friday. She was evaluated in the emergency room vital examination on presentation revealed a temperature of 97.5 pulse 128 respiration 18 blood pressure 165/99 pulse ox 95% on room air Laboratory data revealed a white blood count of 6.2 hemoglobin 14.7 platelet count 243 sodium 131 potassium 4.0 chloride 93 BUN 16 creatinine 0.6 glucose 165 troponin level 0.012 TSH 2.22 Testing in the emergency room revealed CT scan of the brain without contrast done in the emergency room revealed no acute intracranial process, chronic appearing periventricular white matter ischemic type changes, CT angiogram of the brain and neck revealed no evidence of high-grade stenosis or intracranial aneurysm, no evidence of dissection of the cervical internal carotid arteries or vertebral arteries or any evidence of significant stenosis of the carotid bifurcations. Chest x-ray done in the emergency room revealed no acute process, EKG done in the emergency room revealed sinus tachycardia with first-degree AV block Patient was admitted to medical floor for further evaluation and treatment, neurology consultation was requested On 12/19/2024 patient is alert and oriented x 3. Per nursing staff patient had fall this morning while in bathroom slipped on floor hit her back. Patient denies hitting her head. Patient does complain of some dull chest pain after fall. Will order EKG troponin cardiology consult. Sodium also low at 128 we will start patient on normal saline at 50 and DC patient's hydrochlorothiazide. Patient denies nausea vomiting or diarrhea. Patient denies any urinary burning or frequency. Patient denies any further neurological symptoms Objective - Vital Signs Vital signs: Vital Signs Temp 98.3 F 12/19/24 08:00 Pulse 86 12/19/24 08:00 Resp 16 12/19/24 08:00 BP 158/92 12/19/24 08:00 Pulse Ox 93 L 12/19/24 08:00 FiO2 Intake & Output 12/18/24 12/19/24 12/19/24 18:59 06:59 18:59 Intake Total 1200 240 Balance 1200 240 Intake: Oral 1200 240 Other: # Voids 1 - Exam In general patient is alert and oriented x 3 in no distress HEENT head normocephalic and atraumatic Neck is supple no JVD no goiter no lymphadenopathy no carotid bruit Chest examination is clear to auscultation no crackles no wheezing Cardiac exam reveals regular heart sounds S1 and S2 no gallops no murmurs Abdomen is soft nontender no organomegaly with normal bowel sounds Extremity exam reveals no edema no cyanosis or clubbing Neurological examination reveals Mental status patient is alert and oriented x 3, speech is fluent Cranial nerves II to XII are intact Sensory exam is normal to touch Motor examination reveals significant weakness in the left upper extremity as compared to the right, otherwise normal motor abnormality Cerebellum there is significant ataxia on the left [id number] test, normal on the right Reflexes are 2+ symmetrical - Labs CBC & Chem 7: 12/19/24 07:53 12/19/24 07:53 Labs: Abnormal Lab Results - Last 24 Hours (Table) 12/17/24 12/19/24 Range/Units 12:17 07:53 Sodium 128 L (137-145) mmol/L Chloride 91 L (98-107) mmol/L Carbon Dioxide 32 H (22-30) mmol/L Glucose 101 H (74-99) mg/dL Cholesterol 235.00 H (0.00-200.00) mg/dL HDL Cholesterol 113.00 H (40.00-60.00) mg/dL Assessment and Plan Plan: Acute ischemic stroke Accelerated hypertension on presentation Tachycardia on presentation Underlying history of hypertension Underlying history of osteoporosis Fall Chest discomfort likely musculoskeletal but will rule out cardiac etiology At this time patient was seen and examined Home medications reviewed and reordered Neurology consultation was requested Echocardiogram and MRI of the brain ordered Will follow closely
[2024-12-19] MEDS: SODIUM CHLORIDE 0.9% 1,000 ML IV SCH (11:00)
--- NOTE | 2024-12-19 14:34 | P.CRDCN ---
History of Present Illness Consult date: 12/19/24 Reason for Consult (text): Chest pain, elevated heart rate, CVA History of present illness: This is a 74-year-old female with past medical history of hypertension. Patient denies any previous cardiac history and does not follow with a senior wealth advisor. Patient initially presented to the hospital on 12/17 due to left upper extremity weakness and numbness since the previous night. Patient has been undergoing stroke workup. Patient had a fall in her room at 745 and also her heart rate went up to 140. We have been asked to evaluate the patient for chest pain, elevated heart rate and CVA. She denies having history of atrial fibrillation or atrial flutter. Patient denies palpitations. She denies smoking. She drinks alcohol rarely. She states she normally exercises about 30 minutes a day on the Peak 10 machine. She does complain of her back and chest are sore. No chest wall tenderness and no worsening of chest pain with deep breathing. Blood pressure 165/95, heart rate 96, pulse ox 92% on room air. -EKG: #1 sinus tachycardia 123 bpm, #2 sinus rhythm 87 bpm -Chest x-ray: No acute process. -Echocardiogram reveals EF of 55%. Trace to mild mitral regurgitation. Mild tricuspid regurgitation. -MRI of the brain: Acute/subacute ischemia within the right parietal lobe. Remote lacunar injuries with advanced nonspecific white matter changes likely small vessel ischemic disease. -Laboratory studies: CBC normal. Sodium 128, creatinine 0.66. Troponin negative x 3. Cholesterol 235, LDL 107, HDL 113, triglycerides 72. TSH 2.22. -Home cardiac medications: Losartan hydrochlorothiazide 100-12.5 mg daily. Review Of Systems: At the time of my exam: CONSTITUTIONAL: Denies fever or chills. HEENT: Denies blurred vision, vision changes, or eye pain. Denies hemoptysis CARDIOVASCULAR: Reports chest pain. Denies orthopnea. Denies PND. Denies palpitations RESPIRATORY: Denies shortness of breath. GASTROINTESTINAL: Denies abdominal pain. Denies nausea or vomiting. HEMATOLOGIC: Denies bleeding disorders. GENITOURINARY: Denies any blood in urine. SKIN: Denies puritis. Denies rash. Physical examination: Gen: This is a 74-year-old female in no acute distress VS: reviewed HEENT: Head is atraumatic, normocephalic. Pupils equal, round. Sclerae is anicteric. NECK: Supple. No JVD. LUNGS: Clear to auscultation. No wheezes or rhonchi. No intercostal retractions. HEART: Regular rate and rhythm. No murmur. ABDOMEN: Soft No tenderness. EXTREMITIES: No pedal edema. No calf tenderness. NEUROLOGICAL: Patient is awake, alert and oriented x3. Assessment: Acute/subacute ischemic stroke in the right parietal lobe Sinus tachycardia Chest pain from fall most likely muscular skeletal with negative troponins Hyponatremia Hypertension Plan: Patient has been resumed on losartan Patient has been started on dual antiplatelet therapy by neurology Start patient on amlodipine 5 mg daily as neurology has requested permissive h ypertension for 24 hours Patient may follow-up in the office after discharge in 1 week and event monitor will be arranged through the office. Further recommendations to follow based upon clinical course Thank you kindly for this consultation. Nurse practitioner note has been reviewed, I agree with documented findings and plan of care. Patient was seen and examined. Past Medical History Past Medical History: Hypertension History of Any Multi-Drug Resistant Organisms: None Reported Past Surgical History: No Surgical Hx Reported Past Anesthesia/Blood Transfusion Reactions: No Reported Reaction Past Psychological History: No Psychological Hx Reported Smoking Status: Former smoker Past Alcohol Use History: None Reported Past Drug Use History: None Reported Medications and Allergies Home Medications Medication Instructions Recorded Confirmed Type Ascorbic Acid [Vitamin C] 1,000 mg PO DAILY 12/17/24 12/17/24 History Calcium Carbonate [Calcium] 1,200 mg PO DAILY 12/17/24 12/17/24 History Cholecalciferol [Vitamin D3 (25 25 mcg PO DAILY 12/17/24 12/17/24 History Mcg = 1000 Iu)] Cider Vinegar [Apple Cider Vinegar] 300 mg PO BID 12/17/24 12/17/24 History Cranberry Fruit Extract [Cranberry] 1,000 mg PO DAILY 12/17/24 12/17/24 History Doterra Deep Blue Polyphenol 1 cap PO DAILY 12/17/24 12/17/24 History Complex Fexofenadine HCl [Katlyn Allergy] 180 mg PO DAILY 12/17/24 12/17/24 History Krill/[place]-3/Dha/Epa/Lipids 1 cap PO DAILY 12/17/24 12/17/24 History [Krill Oil 350 mg Softgel] Losartan/Hydrochlorothiazide 1 tab PO DAILY 12/17/24 12/17/24 History [Losartan-Hctz 100-12.5 mg Tab] Lysine 500 mg PO DAILY 12/17/24 12/17/24 History Magnesium 250 mg PO DAILY 12/17/24 12/17/24 History Turmeric Root Extract [Turmeric] 500 mg PO DAILY 12/17/24 12/17/24 History Vit C/E/Zn/Coppr/Lutein/Zeaxan 1 cap PO BID 12/17/24 12/17/24 History [Preservision Areds 2 Softgel] Vitamin B Complex 1 cap PO DAILY 12/17/24 12/17/24 History Vitamin K2 [Vitamin K-2] 100 mcg PO DAILY 12/17/24 12/17/24 History Allergies Allergy/AdvReac Type Severity Reaction Status Date / Time No Known Allergies Allergy Verified 12/17/24 13:14 Physical Exam Vitals: Vital Signs Temp Pulse Resp BP Pulse Ox 12/19/24 08:00 98.3 F 86 16 158/92 93 L 12/19/24 04:51 80 16 164/106 97 12/19/24 02:07 16 12/18/24 23:16 71 16 158/82 92 L 12/18/24 20:00 16 12/18/24 19:54 97.8 F 71 18 152/91 95 12/18/24 16:00 97.6 F 84 16 164/95 95 12/18/24 14:00 79 16 12/18/24 12:00 97.9 F 79 16 154/90 96 Intake and Output 12/18/24 12/19/24 12/19/24 22:59 06:59 14:59 Intake Total 720 240 Balance 720 240 Intake: Oral 720 240 Other: # Voids 1 Results 12/19/24 07:53 12/19/24 07:53 Cardiac Enzymes 12/19/24 12/19/24 Range/Units 07:53 10:13 AST 29 (14-36) U/L Troponin I <0.012 (0.000-0.034) ng/mL Lipids 12/17/24 Range/Units 12:17 Triglycerides 72.60 (0.00-149.00) mg/dL Cholesterol 235.00 H (0.00-200.00) mg/dL HDL Cholesterol 113.00 H (40.00-60.00) mg/dL Cholesterol/HDL Ratio 2.08 Ratio CBC 12/19/24 Range/Units 07:53 WBC 4.6 (3.8-10.6) k/uL RBC 4.81 (3.80-5.40) m/uL Hgb 14.9 (11.4-16.0) gm/dL Hct 45.4 (34.0-46.0) % Plt Count 238 (150-450) k/uL Comprehensive Metabolic Panel 12/19/24 Range/Units 07:53 Sodium 128 L (137-145) mmol/L Potassium 3.9 (3.5-5.1) mmol/L Chloride 91 L (98-107) mmol/L Carbon Dioxide 32 H (22-30) mmol/L BUN 14 (7-17) mg/dL Creatinine 0.66 (0.52-1.04) mg/dL Glucose 101 H (74-99) mg/dL Calcium 9.2 (8.4-10.2) mg/dL AST 29 (14-36) U/L ALT 24 (4-34) U/L Alkaline Phosphatase 79 (38-126) U/L Total Protein 6.7 (6.3-8.2) g/dL Albumin 4.1 (3.5-5.0) g/dL Current Medications Generic Name Dose Route Start Last Admin Trade Name Freq PRN Reason Stop Dose Admin Ascorbic Acid 1,000 mg 12/19/24 09:00 12/19/24 09:01 Ascorbic Acid 500 Mg Tab PO 1,000 mg DAILY WALLY Administration Aspirin 81 mg 12/19/24 09:00 12/19/24 09:02 Aspirin 81 Mg PO 81 mg DAILY WALLY Administration Atorvastatin Calcium 20 mg 12/18/24 09:00 12/19/24 09:02 Atorvastatin 20 Mg Tab PO 20 mg DAILY WALLY Administration Calcium Carbonate/Glycine 1,000 mg 12/19/24 09:00 12/19/24 09:00 Calcium Carbonate 500 Mg Chewable PO 1,000 mg DAILY WALLY Administration Cholecalciferol 25 mcg 12/19/24 09:00 12/19/24 09:01 Cholecalciferol 25 Mcg (1000 Iu) Tablet PO 25 mcg DAILY WALLY Administration Clopidogrel Bisulfate 75 mg 12/18/24 10:45 12/19/24 09:02 Clopidogrel 75 Mg Tab PO 75 mg DAILY WALLY Administration Heparin Sodium (Porcine) 5,000 unit 12/17/24 21:00 12/19/24 08:59 Heparin Sodium,Porcine 5,000 Unit/Ml 1 Ml Vial SQ 5,000 unit Q12HR WALLY Administration Sodium Chloride 1,000 mls @ 50 mls/hr 12/19/24 09:30 Saline 0.9% IV .Q20H WALLY Loratadine 10 mg 12/17/24 23:00 12/19/24 09:01 Loratadine 10 Mg Tab PO 10 mg DAILY WALLY Administration Losartan Potassium 100 mg 12/18/24 09:30 12/19/24 09:02 Losartan 50 Mg Tab PO 100 mg DAILY WALLY Administration Magnesium Oxide 400 mg 12/18/24 09:30 12/19/24 09:01 Magnesium Oxide 400 Mg Tab PO 400 mg DAILY WALLY Administration Multivitamins/Minerals 1 each 12/18/24 21:00 12/19/24 08:59 Vit A,C & U-[id number] 1 Each Tab PO 1 each BID WALLY Administration Intake and Output 12/18/24 12/19/24 12/19/24 22:59 06:59 14:59 Intake Total 720 240 Balance 720 240 Intake: Oral 720 240 Other: # Voids 1 12/19/24 07:53 12/19/24 07:53
[2024-12-19] MEDS: amLODIPine 5 MG TAB PO SCH (15:54)
[2024-12-20 07:24] LABS: Basophils % (A) 0 %; Eosinophils # (A) 0.1 k/uL (0-0.7); Eosinophils % (A) 2 %; HCT 40.9 % (34.0-46.0); HGB 13.4 gm/dL (11.4-16.0); Lymphocytes # (A) 1.2 k/uL (1.0-4.8); Lymphocytes % (A) 19 %; MCH 30.6 pg (25.0-35.0); MCHC 32.8 g/dL (31.0-37.0); MCV 93.4 fL (80.0-100.0); Mean Platelet Volume 6.6; Monocytes # (A) 0.5 k/uL (0-1.0); Monocytes % (A) 8 %; Neutrophils # (A) 4.1 k/uL (1.3-7.7); Neutrophils % (A) 69 %; Platelet Count 206 k/uL (150-450); RBC 4.38 m/uL (3.80-5.40); RDW 12.6 % (11.5-15.5); WBC 5.9 k/uL (3.8-10.6)
[2024-12-20 07:43] LABS: ALT 20 U/L (4-34); AST 23 U/L (14-36); African American GFR (CKD) >90 (>60 ml/min/1.73 sqM); Albumin 3.3 g/dL (3.5-5.0); Alkaline Phosphatase 75 U/L (38-126); Anion Gap 5 mmol/L; Blood Urea Nitrogen 14 mg/dL (7-17); Calcium 8.5 mg/dL (8.4-10.2); Carbon Dioxide 28 mmol/L (22-30); Chloride 93 mmol/L (98-107); Glucose 98 mg/dL (74-99); Non-African American GFR(CKD) 89 (>60 ml/min/1.73 sqM); Potassium 3.9 mmol/L (3.5-5.1); Sodium 126 mmol/L (137-145); Total Bilirubin 0.8 mg/dL (0.2-1.3); Total Protein 5.8 g/dL (6.3-8.2)
--- NOTE | 2024-12-20 12:40 | P.NPCON ---
History of Present Illness - Reason for Consult hyponatremia - History of Present Illness Patient is a 74-year-old female with history of hypertension who is admitted to the hospital with left arm weakness and fall at home. Patient is noted to have acute/subacute ischemic stroke in the right parietal lobe. She denies any significant weakness in any of her extremities at this time. Serum sodium was 131 on admission and decreased to 126 today. Patient received a fluid bolus in the ER and was maintained on saline at 100 cc an hour,, decreased to 50 cc an hour yesterday. Hydrochlorothiazide noted on home med list. Patient is tolerating oral intake. She denies any significant pain. Chest x-ray is unremarkable. Patient has been voiding. Past Medical History Past Medical History: Hypertension History of Any Multi-Drug Resistant Organisms: None Reported Past Surgical History: No Surgical Hx Reported Past Anesthesia/Blood Transfusion Reactions: No Reported Reaction Past Psychological History: No Psychological Hx Reported Smoking Status: Former smoker Past Alcohol Use History: None Reported Past Drug Use History: None Reported Medications and Allergies Home Medications Medication Instructions Recorded Confirmed Type Ascorbic Acid [Vitamin C] 1,000 mg PO DAILY 12/17/24 12/17/24 History Calcium Carbonate [Calcium] 1,200 mg PO DAILY 12/17/24 12/17/24 History Cholecalciferol [Vitamin D3 (25 25 mcg PO DAILY 12/17/24 12/17/24 History Mcg = 1000 Iu)] Cider Vinegar [Apple Cider Vinegar] 300 mg PO BID 12/17/24 12/17/24 History Cranberry Fruit Extract [Cranberry] 1,000 mg PO DAILY 12/17/24 12/17/24 History Doterra Deep Blue Polyphenol 1 cap PO DAILY 12/17/24 12/17/24 History Complex Fexofenadine HCl [Katlyn Allergy] 180 mg PO DAILY 12/17/24 12/17/24 History Krill/[place]-3/Dha/Epa/Lipids 1 cap PO DAILY 12/17/24 12/17/24 History [Krill Oil 350 mg Softgel] Losartan/Hydrochlorothiazide 1 tab PO DAILY 12/17/24 12/17/24 History [Losartan-Hctz 100-12.5 mg Tab] Lysine 500 mg PO DAILY 12/17/24 12/17/24 History Magnesium 250 mg PO DAILY 12/17/24 12/17/24 History Turmeric Root Extract [Turmeric] 500 mg PO DAILY 12/17/24 12/17/24 History Vit C/E/Zn/Coppr/Lutein/Zeaxan 1 cap PO BID 12/17/24 12/17/24 History [Preservision Areds 2 Softgel] Vitamin B Complex 1 cap PO DAILY 12/17/24 12/17/24 History Vitamin K2 [Vitamin K-2] 100 mcg PO DAILY 12/17/24 12/17/24 History Allergies Allergy/AdvReac Type Severity Reaction Status Date / Time No Known Allergies Allergy Verified 12/17/24 13:14 Physical Exam Vitals: Vital Signs Temp Pulse Resp BP Pulse Ox 12/20/24 11:19 83 16 165/85 95 12/20/24 09:01 97.9 F 84 16 149/80 94 L 12/20/24 09:00 84 16 12/20/24 04:00 98.6 F 83 16 151/79 92 L 12/20/24 02:00 87 16 12/20/24 00:00 98.4 F 87 16 137/82 93 L 12/19/24 20:00 98.8 F 94 16 141/72 92 L 12/19/24 15:52 98.5 F 97 16 178/77 93 L 12/19/24 14:00 97 16 Intake and Output 12/19/24 12/20/24 12/20/24 22:59 06:59 14:59 Intake Total 490 360 Balance 490 360 Intake: IV 10 Invasive Line 1 10 Oral 480 360 Other: # Voids 1 1 Patient is awake, comfortable, no acute distress. Examination of the heart S1 and S2 Examination of the lungs bilateral breath sounds are heard Abdomen is soft nontender Examination of lower extremities shows no significant edema SENIOR IT ARCHITECT exam grossly intact Results - Lab Results Most recent lab results Calcium 8.5 mg/dL (8.4-10.2) 12/20/24 07:00 Magnesium 1.8 mg/dL (1.6-2.3) 12/17/24 12:17 12/20/24 07:00 12/20/24 07:00 Assessment and Plan Assessment: 1. Hyponatremia worsening with saline administration, suggesting underlying SIADH. Patient appears euvolemic. Saline will be discontinued. Rule out urine retention. 2. Acute/subacute right parietal lobe ischemic CVA 3. Hypertension maintained on angiotensin receptor blockers Plan: DC normal saline Lasix 20 mg IV x 1 Repeat sodium this evening Add fluid restriction Check urine sodium and urine osmolality Thank you for the consultation. We will continue to follow the patient with you during her hospitalization.
[2024-12-20] MEDS: FUROSEMIDE 10 MG/ML 2 ML VIAL IV ONE (13:09)
--- NOTE | 2024-12-20 13:58 | P.PN ---
Subjective HISTORY OF PRESENT ILLNESS: This is a 74-year-old female with past medical history of hypertension. 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 Patient initially presented to the hospital on 12/17 due to left upper extremity weakness and numbness since the previous night. Patient has been undergoing [facility] workup. Patient had a fall in her room at 745 and also her heart rate went up to 140. We have been asked to evaluate the patient for chest pain, elevated heart rate and CVA. She denies having history of atrial fibrillation or atrial flutter. Patient denies palpitations. She denies smoking. She drinks alcohol rarely. She states she normally exercises about 30 minutes a day on the [place] machine. She does complain of her back and chest are sore. No chest wall tenderness and no worsening of chest pain with deep breathing. Blood pressure 165/95, heart rate 96, pulse ox 92% on room air. -EKG: #1 sinus tachycardia 123 bpm, #2 sinus rhythm 87 bpm -Chest x-ray: No acute process. -Echocardiogram reveals EF of 55%. Trace to mild mitral regurgitation. Mild tricuspid regurgitation. -MRI of the brain: Acute/subacute ischemia within the right parietal lobe. Remote lacunar injuries with advanced nonspecific white matter changes likely small vessel ischemic disease. -Laboratory studies: CBC normal. Sodium 128, creatinine 0.66. Troponin negative x 3. Cholesterol 235, LDL 107, HDL 113, triglycerides 72. TSH 2.22. -Home cardiac medications: Losartan hydrochlorothiazide 100-12.5 mg daily. 12/20/2024 Patient examined this morning. Patient is sitting up in the chair. Patient currently denies chest pain or pressure. She denies shortness of breath. Telemetry reveals sinus mechanism. Vital signs are stable. Systolic blood pressure [id number]. Sodium remains low today at 126. PHYSICAL EXAM: VITAL SIGNS: Reviewed. GENERAL: Well-developed in no acute distress. NECK: Supple. No JVD or thyromegaly LUNGS: Respirations even and unlabored. Lungs essentially clear to auscultation bilaterally. HEART: Regular rate and rhythm. S1 and S2 heard. EXTREMITIES: Normal range of motion. No clubbing or cyanosis. Peripheral pulses intact. No lower extremity edema ASSESSMENT: Acute/subacute ischemic stroke in the right parietal lobe Sinus tachycardia Chest pain from fall most likely muscular skeletal with negative troponins Hyponatremia Hypertension PLAN: Continue current cardiac medications including amlodipine, aspirin, atorvastatin, Plavix, and losartan Continue telemetry monitoring Continue to monitor blood pressure Nephrology consulted for hyponatremia. Continue to monitor sodium. Recommend event monitor from [facility] at the time of discharge Further recommendations pending patient course Patient to follow-up postdischarge with Dr. Cardenas Nurse practitioner note has been reviewed by physician. Signing provider agrees with the documented findings, assessment, and plan of care documented by BARREL ROLLER as a scribe. Objective - Vital Signs Vital signs: Vital Signs Temp 97.9 F 12/20/24 09:01 Pulse 83 12/20/24 13:33 Resp 16 12/20/24 13:33 BP 165/85 12/20/24 11:19 Pulse Ox 95 12/20/24 11:19 FiO2 Intake & Output 12/19/24 12/20/24 12/20/24 18:59 06:59 18:59 Intake Total 598 250 360 Balance 598 250 360 Intake: IV 10 Invasive Line 1 10 Oral 598 240 360 Other: # Voids 1 1 - Labs CBC & Chem 7: 12/20/24 07:00 12/20/24 07:00 Labs: Abnormal Lab Results - Last 24 Hours (Table) 12/20/24 Range/Units 07:00 Sodium 126 L (137-145) mmol/L Chloride 93 L (98-107) mmol/L Total Protein 5.8 L (6.3-8.2) g/dL Albumin 3.3 L (3.5-5.0) g/dL
--- NOTE | 2024-12-20 17:55 | P.PN ---
Subjective Progress Note Date: 12/20/24 Desiree Martinez, is a 74 year-old female who presented to [facility] ER with a chief complaint of left arm weakness that started in the morning when she woke up on Friday. She was evaluated in the emergency room vital examination on presentation revealed a temperature of 97.5 pulse 128 respiration 18 blood pressure 165/99 pulse ox 95% on room air Laboratory data revealed a white blood count of 6.2 hemoglobin 14.7 platelet count 243 sodium 131 potassium 4.0 chloride 93 BUN 16 creatinine 0.6 glucose 165 troponin level 0.012 TSH 2.22 Testing in the emergency room revealed CT scan of the brain without contrast done in the emergency room revealed no acute intracranial process, chronic appearing periventricular white matter ischemic type changes, CT angiogram of the brain and neck revealed no evidence of high-grade stenosis or intracranial aneurysm, no evidence of dissection of the cervical internal carotid arteries or vertebral arteries or any evidence of significant stenosis of the carotid bifurcations. Chest x-ray done in the emergency room revealed no acute process, EKG done in the emergency room revealed sinus tachycardia with first-degree AV block Patient was admitted to medical floor for further evaluation and treatment, neurology consultation was requested On 12/19/2024 patient is alert and oriented x 3. Per nursing staff patient had fall this morning while in bathroom slipped on floor hit her back. Patient denies hitting her head. Patient does complain of some dull chest pain after fall. Will order EKG troponin cardiology consult. Sodium also low at 128 we will start patient on normal saline at 50 and DC patient's hydrochlorothiazide. Patient denies nausea vomiting or diarrhea. Patient denies any urinary burning or frequency. Patient denies any further neurological symptoms On 12/20/2024 patient was seen and examined on the medical floor she is alert and oriented times 3 in no apparent distress, she stated that her symptoms are improving, sodium however is down to 126, on presentation patient was maintained on hydrochlorothiazide which was discontinued, however her sodium continued to drop, she received normal saline at 50 cc/h, and her sodium continued to drop, she was seen by Dr. Garzon in nephrology consultation who advised that her hyponatremia is related to SIADH related to her recent stroke. She was given 1 dose of IV Lasix, and was advised to restrict free water. Will recheck labs including sodium in a.m. Objective - Vital Signs Vital signs: Vital Signs Temp 97.9 F 12/20/24 09:01 Pulse 83 12/20/24 13:33 Resp 16 12/20/24 13:33 BP 165/85 12/20/24 11:19 Pulse Ox 95 12/20/24 11:19 FiO2 Intake & Output 12/19/24 12/20/24 12/20/24 18:59 06:59 18:59 Intake Total 598 250 360 Balance 598 250 360 Intake: IV 10 Invasive Line 1 10 Oral 598 240 360 Other: # Voids 1 1 - Exam In general patient is alert and oriented x 3 in no distress HEENT head normocephalic and atraumatic Neck is supple no JVD no goiter no lymphadenopathy no carotid bruit Chest examination is clear to auscultation no crackles no wheezing Cardiac exam reveals regular heart sounds S1 and S2 no gallops no murmurs Abdomen is soft nontender no organomegaly with normal bowel sounds Extremity exam reveals no edema no cyanosis or clubbing Neurological examination reveals Mental status patient is alert and oriented x 3, speech is fluent Cranial nerves II to XII are intact Sensory exam is normal to touch Motor examination reveals significant weakness in the left upper extremity as compared to the right, otherwise normal motor abnormality Cerebellum there is significant ataxia on the left [id number] test, normal on the right Reflexes are 2+ symmetrical - Labs CBC & Chem 7: 12/20/24 07:00 12/20/24 07:00 Labs: Abnormal Lab Results - Last 24 Hours (Table) 12/20/24 Range/Units 07:00 Sodium 126 L (137-145) mmol/L Chloride 93 L (98-107) mmol/L Total Protein 5.8 L (6.3-8.2) g/dL Albumin 3.3 L (3.5-5.0) g/dL Assessment and Plan Plan: Acute ischemic stroke Accelerated hypertension on presentation Tachycardia on presentation Underlying history of hypertension Underlying history of osteoporosis Fall Chest discomfort likely musculoskeletal but will rule out cardiac etiology At this time patient was seen and examined Home medications reviewed and reordered Neurology consultation was requested Echocardiogram and MRI of the brain ordered Will follow closely
[2024-12-21 07:49] VITALS: TEMP 97.8
[2024-12-21] MEDS: ATORVASTATIN 40 MG TAB PO SCH (07:52)
[2024-12-21 10:46] LABS: African American GFR (CKD) >90 (>60 ml/min/1.73 sqM); Anion Gap 5 mmol/L; Blood Urea Nitrogen 16 mg/dL (7-17); Calcium 9.9 mg/dL (8.4-10.2); Carbon Dioxide 34 mmol/L (22-30); Chloride 92 mmol/L (98-107); Glucose 141 mg/dL (74-99); Non-African American GFR(CKD) 86 (>60 ml/min/1.73 sqM); Potassium 3.7 mmol/L (3.5-5.1); Sodium 131 mmol/L (137-145)
--- NOTE | 2024-12-21 10:50 | P.PN ---
Subjective Patient is seen for follow-up for hyponatremia. Serum sodium improved to 128 yesterday after IV fluids were discontinued and patient received a small dose of Lasix. No significant complaints today Labs are pending from today Urine osmolality was 233 and urine sodium 80 Tolerating oral intake Objective - Vital Signs Vital signs: Vital Signs Temp 97.8 F 12/21/24 07:48 Pulse 98 12/21/24 08:00 Resp 16 12/21/24 08:00 BP 142/88 12/21/24 07:48 Pulse Ox 91 L 12/21/24 07:48 FiO2 Intake & Output 12/20/24 12/21/24 12/21/24 18:59 06:59 18:59 Intake Total 600 100 10 Output Total 300 Balance 600 -200 10 Intake: IV 10 Invasive Line 1 10 Oral 600 100 Output: Urine 300 Other: Voiding Method Toilet Toilet # Voids 3 - Exam Patient is awake, comfortable, no acute distress. Examination of the heart S1 and S2 Examination of the lungs bilateral breath sounds are heard Abdomen is soft nontender Examination of lower extremities shows no significant edema BACKUP OPERATOR exam grossly intact - Labs CBC & Chem 7: 12/20/24 07:00 12/20/24 18:05 Labs: Abnormal Lab Results - Last 24 Hours (Table) 12/20/24 12/20/24 Range/Units 13:55 18:05 Sodium 128 L (137-145) mmol/L Urine Osmolality 233 L (400-1100) mOsm/kg Assessment and Plan Assessment: 1. Hyponatremia worsening with saline administration. Patient appears euvolemic. Etiology is low urine osmoles and poor oral intake. Urine retention seems to have improved. 2. Acute/subacute right parietal lobe ischemic CVA 3. Hypertension maintained on angiotensin receptor blockers Plan: Continue off of IV fluids Check labs today Continue with fluid restriction Encouraged increased oral intake particularly protein
--- NOTE | 2024-12-21 12:03 | P.PN ---
Subjective Progress Note Date: 12/20/24 12/20/2024: Patient was seen for follow-up. Patient is laying comfortably in bed. She wants to go home. Offers no new complaints. 12/18/2024: Patient is initially seen by Dr. Jorge Weir. Please refer to his note for details. Patient is a 74-year-old female with left upper extremity weakness, numbness since the night prior. Patient is undergoing stroke workup. Patient refused dual antiplatelet therapy. Patient was seen for a follow-up. Patient is laying comfortably in the bed. Offers no complaints. She feels her left side is getting better. Patient was not taking any antiplatelet medication at home. Some of the workup during this hospital visit consisted of: Systolic blood pressure in the 160s to 170s. Diastolic blood pressure 90s to 1 00s Heart rate in the 120s. TSH is 2.22 CT of the head reported as no acute intracranial process. Chronic appearing periventricular white matter ischemic type changes. I personally reviewed the CT head and I agree there is no acute or subacute stroke. Patient does have chronic small vessel ischemic changes as well as has old lesion over the bilateral hemisphere. CT Angiography of the head and neck is reported as no evidence of dissection of cervical internal carotid artery or vertebral artery or any evidence of significant stenosis at the carotid bifurcation. No evidence of high-grade sten osis or intracranial aneurysm. Objective - Vital Signs Vital signs: Vital Signs Temp 96.9 F L 12/20/24 15:33 Pulse 110 H 12/20/24 15:33 Resp 16 12/20/24 15:33 BP 163/97 12/20/24 15:33 Pulse Ox 96 12/20/24 15:33 FiO2 Intake & Output 12/19/24 12/20/24 12/20/24 18:59 06:59 18:59 Intake Total 598 250 480 Balance 598 250 480 Intake: IV 10 Invasive Line 1 10 Oral 598 240 480 Other: # Voids 1 1 - Exam Mental status, speech and language functions are normal. Cranial nerves are normal. Visual sprague are full, extraocular muscles are intact. Face is symmetric. On muscle strength testing, patient has left pronation, with no drift. The strength is normal in the arms and legs. Sensory to touch is equal in the arms with no neglect. Sensory to touch is equal in the legs, but she neglects left leg on double simultaneous stimulation. Patient has ataxia for [id number] testing on the left, but not the right. No ataxia in the lower limbs. Gait deferred. - Labs CBC & Chem 7: 12/20/24 07:00 12/21/24 09:49 Labs: Abnormal Lab Results - Last 24 Hours (Table) 12/20/24 Range/Units 07:00 Sodium 126 L (137-145) mmol/L Chloride 93 L (98-107) mmol/L Total Protein 5.8 L (6.3-8.2) g/dL Albumin 3.3 L (3.5-5.0) g/dL Assessment and Plan Assessment: Acute ischemic stroke in the right parietal lobe. No IV thrombolytic since outside the window and the risk outweighed the benefit. Escalated hypertension Hyperlipidemia Underlying history of hypertension and is on medication and states it is controlled Plan: * Patient was not taking any antiplatelet medication at home. Now with stroke, she has agreed to be on dual antiplatelet therapy for 21 days. Patient will be placed on aspirin 81 mg and Plavix 75 mg for 21 days, thereafter she will stop Plavix and continue aspirin indefinitely. * Lipid panel with cholesterol 235, LDL 107, HDL 113 and triglycerides 72. We will increase Lipitor to 40 mg daily. * MRI of the brain revealed acute/subacute ischemia within the right parietal lobe. Remote lacunar injuries with advanced nonspecific white matter changes, likely related to small vessel ischemic disease. I personally reviewed MRI, agree with the findings. * 2D echo revealed LVEF 55%. Mildly increased septal wall thickness. Mildly increased posterior wall thickness. Moderately increased left atrial diameter. No left atrial thrombus or mass. Trace to mild MR. * Continue neurochecks * Hemoglobin A1c 6.0 * Recommend 30-day event monitoring outpatient to rule out paroxysmal atrial fibrillation. Cardiology following. Will be initiated at the time of discharge. * PT OT and [facility] are consulted * Optimize control of blood pressure. Avoid hypotension. * Defer the rest of the medical management to primary team * For DVT prophylaxis I started the patient on subcu heparin 5000 units every 12 hours * Discussed with patient's and patient's nurse as well. * Patient has developed hyponatremia with sodium of 126. Nephrology has been consulted. * Neurologically otherwise clear for discharge.
[2024-12-21 12:04] VITALS: BP 118/73; PULSE 81
--- NOTE | 2024-12-21 13:08 | P.DS ---
Providers Date of admission: 12/17/24 13:52 Expected date of discharge: 12/21/24 Attending physician: Leticia Norman Consults: 12/17/24 13:51 Consult Physician Urgent Consulting Provider: Jorge Weir Consult Reason/Comments: CVA Do you want consulting provider notified?: Yes 12/19/24 09:21 Consult Physician Routine Consulting Provider: Pee Cardenas Consult Reason/Comments: chest pain elevated heart rate, cva Do you want consulting provider notified?: Yes 12/20/24 09:28 Consult Physician Routine Consulting Provider: Sydney Garzon Consult Reason/Comments: hyponatremia Do you want consulting provider notified?: Yes Primary care physician: Pooja Cruz [facility] Course: Diagnosis on discharge: Acute ischemic stroke Accelerated hypertension on presentation Tachycardia on presentation Underlying history of hypertension Underlying history of osteoporosis Fall, without any evidence of bone fracture Chest discomfort likely musculoskeletal but will rule out cardiac etiology Hyponatremia, 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 She was evaluated in the emergency room vital examination on presentation revealed a temperature of 97.5 pulse 128 respiration 18 blood pressure 165/99 pulse ox 95% on room air Laboratory data revealed a white blood count of 6.2 hemoglobin 14.7 platelet count 243 sodium 131 potassium 4.0 chloride 93 BUN 16 creatinine 0.6 glucose 165 troponin level 0.012 TSH 2.22 Testing in the emergency room revealed CT scan of the brain without contrast done in the emergency room revealed no acute intracranial process, chronic appearing periventricular white matter ischemic type changes, CT angiogram of the brain and neck revealed no evidence of high-grade stenosis or intracranial aneurysm, no evidence of dissection of the cervical internal carotid arteries or vertebral arteries or any evidence of significant stenosis of the carotid bifurcations. Chest x-ray done in the emergency room revealed no acute process, EKG done in the emergency room revealed sinus tachycardia with first-degree AV block Patient was admitted to medical floor for further evaluation and treatment, neurology consultation was requested On 12/19/2024 patient is alert and oriented x 3. Per nursing staff patient had fall this morning while in bathroom slipped on floor hit her back. Patient denies hitting her head. Patient does complain of some dull chest pain after fall. Will order EKG troponin cardiology consult. Sodium also low at 128 we will start patient on normal saline at 50 and DC patient's hydrochlorothiazide. Patient denies nausea vomiting or diarrhea. Patient denies any urinary burning or frequency. Patient denies any further neurological symptoms On 12/20/2024 patient was seen and examined on the medical floor she is alert and oriented times 3 in no apparent distress, she stated that her symptoms are improving, sodium however is down to 126, on presentation patient was maintained on hydrochlorothiazide which was discontinued, however her sodium continued to drop, she received normal saline at 50 cc/h, and her sodium continued to drop, she was seen by Dr. Garzon in nephrology consultation who advised that her hyponatremia is related to SIADH related to her recent stroke. She was given 1 dose of IV Lasix, and was advised to restrict free water. Will recheck labs including sodium in a.m. On 12/21/2024 patient was seen and examined on the medical floor she is doing better there is no fever or chills no headache or dizziness no chest pain no shortness of breath no cough no nausea or vomiting no abdominal pain no diarrhea and no urinary symptoms. Patient was cleared by neurology cardiology and nephrology for discharge. She will receive an event monitor. She will be followed by her primary care physician Dr. Cruz and by [facility]. Sodium today is up to 131 Patient Condition at Discharge: Stable Plan - Discharge Summary Discharge Rx Participant: Yes New Discharge Prescriptions: New Aspirin 81 mg PO DAILY 30 Days #30 tab Losartan [Cozaar] 100 mg PO DAILY 30 Days #30 tab Atorvastatin [Lipitor] 40 mg PO DAILY 30 Days #30 tab amLODIPine [Norvasc] 5 mg PO DAILY 30 Days #30 tab Clopidogrel [Plavix] 75 mg PO DAILY 30 Days #30 tab Continue Vit C/E/Zn/Coppr/Lutein/Zeaxan [Preservision Areds 2 Softgel] 1 cap PO BID Lysine 500 mg PO DAILY Cholecalciferol [Vitamin D3 (25 Mcg = 1000 Iu)] 25 mcg PO DAILY Ascorbic Acid [Vitamin C] 1,000 mg PO DAILY Turmeric Root Extract [Turmeric] 500 mg PO DAILY Krill/[place]-3/Dha/Epa/Lipids [Krill Oil 350 mg Softgel] 1 cap PO DAILY Cranberry Fruit Extract [Cranberry] 1,000 mg PO DAILY Calcium Carbonate [Calcium] 1,200 mg PO DAILY Vitamin B Complex 1 cap PO DAILY Magnesium 250 mg PO DAILY Fexofenadine HCl [Katlyn Allergy] 180 mg PO DAILY Cider Vinegar [Apple Cider Vinegar] 300 mg PO BID Discontinued Vitamin K2 [Vitamin K-2] 100 mcg PO DAILY Losartan/Hydrochlorothiazide [Losartan-Hctz 100-12.5 mg Tab] 1 tab PO DAILY Doterra Deep Blue Polyphenol Complex 1 cap PO DAILY Discharge Medication List Ascorbic Acid [Vitamin C] 1,000 mg PO DAILY 12/17/24 [History] Calcium Carbonate [Calcium] 1,200 mg PO DAILY 12/17/24 [History] Cholecalciferol [Vitamin D3 (25 Mcg = 1000 Iu)] 25 mcg PO DAILY 12/17/24 [History] Cider Vinegar [Apple Cider Vinegar] 300 mg PO BID 12/17/24 [History] Cranberry Fruit Extract [Cranberry] 1,000 mg PO DAILY 12/17/24 [History] Fexofenadine HCl [Katlyn Allergy] 180 mg PO DAILY 12/17/24 [History] Krill/[place]-3/Dha/Epa/Lipids [Krill Oil 350 mg Softgel] 1 cap PO DAILY 12/17/24 [History] Lysine 500 mg PO DAILY 12/17/24 [History] Magnesium 250 mg PO DAILY 12/17/24 [History] Turmeric Root Extract [Turmeric] 500 mg PO DAILY 12/17/24 [History] Vit C/E/Zn/Coppr/Lutein/Zeaxan [Preservision Areds 2 Softgel] 1 cap PO BID 12/17/24 [History] Vitamin B Complex 1 cap PO DAILY 12/17/24 [History] Aspirin 81 mg PO DAILY 30 Days #30 tab 12/21/24 [Rx] Atorvastatin [Lipitor] 40 mg PO DAILY 30 Days #30 tab 12/21/24 [Rx] Clopidogrel [Plavix] 75 mg PO DAILY 30 Days #30 tab 12/21/24 [Rx] Losartan [Cozaar] 100 mg PO DAILY 30 Days #30 tab 12/21/24 [Rx] amLODIPine [Norvasc] 5 mg PO DAILY 30 Days #30 tab 12/21/24 [Rx] Follow up Appointment(s)/Referral(s): Pooja Cruz MD [Primary Care Provider] - 1-2 days Pee Cardenas DO [STAFF PHYSICIAN] - 1 Week
--- NOTE | 2024-12-21 15:08 | P.PN ---
Subjective HISTORY OF PRESENT ILLNESS: This is a 74-year-old female with past medical history of hypertension. 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 Patient initially presented to the hospital on 12/17 due to left upper extremity weakness and numbness since the previous night. Patient has been undergoing st roke workup. Patient had a fall in her room at 745 and also her heart rate went up to 140. We have been asked to evaluate the patient for chest pain, elevated heart rate and CVA. She denies having history of atrial fibrillation or atrial flutter. Patient denies palpitations. She denies smoking. She drinks alcohol rarely. She states she normally exercises about 30 minutes a day on the [employer] ([employer] machine. She does complain of her back and chest are sore. No chest wall tenderness and no worsening of chest pain with deep breathing. Blood pressure 165/95, heart rate 96, pulse ox 92% on room air. -EKG: #1 sinus tachycardia 123 bpm, #2 sinus rhythm 87 bpm -Chest x-ray: No acute process. -Echocardiogram reveals EF of 55%. Trace to mild mitral regurgitation. Mild tricuspid regurgitation. -MRI of the brain: Acute/subacute ischemia within the right parietal lobe. Remote lacunar injuries with advanced nonspecific white matter changes likely small vessel ischemic disease. -Laboratory studies: CBC normal. Sodium 128, creatinine 0.66. Troponin negative x 3. Cholesterol 235, LDL 107, HDL 113, triglycerides 72. TSH 2.22. -Home cardiac medications: Losartan hydrochlorothiazide 100-12.5 mg daily. 12/20/2024 Patient examined this morning. Patient is sitting up in the chair. Patient currently denies chest pain or pressure. She denies shortness of breath. Telemetry reveals sinus mechanism. Vital signs are stable. Systolic blood pressure [id number]. Sodium remains low today at 126. 12/21/2024 Patient examined this morning. Patient denies chest pain or pressure. She denies shortness of breath. Sodium improved today to 131. Vital signs are stable. She is hoping to be discharged home today. PHYSICAL EXAM: VITAL SIGNS: Reviewed. GENERAL: Well-developed in no acute distress. NECK: Supple. No JVD or thyromegaly LUNGS: Respirations even and unlabored. Lungs essentially clear to auscultation bilaterally. HEART: Regular rate and rhythm. S1 and S2 heard. EXTREMITIES: Normal range of motion. No clubbing or cyanosis. Peripheral pulses intact. No lower extremity edema ASSESSMENT: Acute/subacute ischemic stroke in the right parietal lobe Sinus tachycardia Chest pain from fall most likely muscular skeletal with negative troponins Hyponatremia Hypertension PLAN: Continue current cardiac medications including amlodipine, aspirin, atorvastatin, Plavix, and losartan Recommend 30 day event monitor from [facility] at the time of discharge Patient is stable for discharge home today from a cardiac standpoint Patient to follow-up postdischarge with Dr. Cardenas Nurse practitioner note has been reviewed by physician. Signing provider agrees with the documented findings, assessment, and plan of care documented by BURR SANDER as a scribe. Objective - Vital Signs Vital signs: Vital Signs Temp 97.8 F 12/21/24 07:48 Pulse 81 12/21/24 12:00 Resp 16 12/21/24 12:00 BP 118/73 12/21/24 12:00 Pulse Ox 92 L 12/21/24 12:00 FiO2 Intake & Output 12/20/24 12/21/24 12/21/24 18:59 06:59 18:59 Intake Total 600 100 10 Output Total 300 Balance 600 -200 10 Intake: IV 10 Invasive Line 1 10 Oral 600 100 Output: Urine 300 Other: Voiding Method Toilet Toilet # Voids 3 1 - Labs CBC & Chem 7: 12/20/24 07:00 12/21/24 09:49 Labs: Abnormal Lab Results - Last 24 Hours (Table) 12/20/24 12/20/24 12/21/24 Range/Units 13:55 18:05 09:49 Sodium 128 L 131 L (137-145) mmol/L Chloride 92 L (98-107) mmol/L Carbon Dioxide 34 H (22-30) mmol/L Glucose 141 H (74-99) mg/dL Urine Osmolality 233 L (400-1100) mOsm/kg
== END 2024-12-21 14:11 | disposition home or self-care (01) | DRG 65 ==
LOC: EC 11:49 → 3SCARD 13:52
PROVIDERS: ADMIT Internal Medicine; ATTEND Internal Medicine
DX: I63.89 Other cerebral infarction (principal); E22.2 Syndrome of inappropriate secretion of antidiuretic hormone; I10 Essential (primary) hypertension; I08.1 Rheumatic disorders of both mitral and tricuspid valves; M81.0 Age-related osteoporosis without current pathological fracture; R07.89 Other chest pain; R27.0 Ataxia, unspecified; R29.702 NIHSS score 2; E78.5 Hyperlipidemia, unspecified; W01.0XXA Fall on same level from slipping, tripping and stumbling without subsequent striking against object, initial encounter; Y92.231 Patient bathroom in hospital as the place of occurrence of the external cause; Z87.891 Personal history of nicotine dependence; Z79.899 Other long term (current) drug therapy
CPT/HCPCS: 36415; 70450; 70496; 70498; 70551; 71046; 80048; 80053; 80061; 83036; 83735; 83935; 84295; 84300; 84443; 84484; 85025; 85610; 85730; 93005; 93306; 96360; 96361; 99291

== ENCOUNTER → 2025-03-10 | Outpatient (CLI) | payer MEDICARE ==
--- NOTE | 2025-03-10 10:24 | MM ---
Reason for Exam: Screening (asymptomatic). Last screening mammogram was performed 12 month(s) ago. Patient History: Menarche at age 12. Patient has no children. Postmenopausal. Paternal cousin (2nd) had breast cancer. Risk Values: Esmer 5 year model risk: 1.8%. NCI Lifetime model risk: 3.6%. Prior Study Comparison: 02/07/2022 Bilateral Screening Mammogram, [facility]. 02/10/2023 Bilateral MG 3D screening mammo w/cad, [facility]. 03/09/2024 Bilateral MG 3D screening mammo w/cad, [facility]. Tissue Density: The breasts are heterogeneously dense, which may obscure small masses. Findings: Analyzed By CAD. Right breast: There is no suspicious group of microcalcifications or new suspicious mass. Benign-appearing calcifications right breast. Left breast: There is no suspicious group of microcalcifications or new suspicious mass. Benign-appearing calcifications left breast. Overall Assessment: Benign, BI-RAD 2 Management: Screening Mammogram of both breasts in [address] [facility] will attempt to contact patient to return for supplemental views and ultrasound if indicated. Patient should continue monthly self-breast exams. A clinical breast exam by your physician is recommended on an annual basis. This exam should not preclude additional follow-up of suspicious palpable abnormalities. Note on Esmer scores and lifetime risk: 1. A Esmer score greater than 3% is considered moderate risk. If this is the case, consider specialist referral to assess eligibility for a risk reducing agent. 2. If overall lifetime risk for the development of breast cancer is 20% or higher, the patient may qualify for future screening with alternating mammogram and breast MRI. [facility], , 03/10/2025 10:21 AM. Electronically signed and approved by: Cecilio Carbone DO
== END | disposition home or self-care (01) ==
LOC: RADMAMWWP 09:49
PROVIDERS: ATTEND Family Medicine
DX: Z12.31 Encounter for screening mammogram for malignant neoplasm of breast (principal); R92.333 Mammographic heterogeneous density, bilateral breasts; R92.1 Mammographic calcification found on diagnostic imaging of breast; Z78.0 Asymptomatic menopausal state; Z80.3 Family history of malignant neoplasm of breast
CPT/HCPCS: 77063; 77067